=== PATIENT | male | born 1965 | race Caucasian/White ===

== ENCOUNTER 2020-02-04 14:33 | Outpatient (CLI) | payer OTHER, SELFPAY | END 2020-02-04 14:34 | disposition home or self-care (01) | PROVIDERS: PCP Internal Medicine; Visit Provider Nurse Practitioner Family | DX: E78.5 Hyperlipidemia, unspecified (principal); Z13.29 Encounter for screening for other suspected endocrine disorder | CPT/HCPCS: 36415; 84443 ==

== ENCOUNTER 2020-04-04 17:29 | Emergency (ER) | payer OTHER, SELFPAY ==
[2020-04-04 17:35] VITALS: BP 140/85; PULSE 59; RESP 18; TEMP 36.4; O2SAT 98
[2020-04-04 19:33] LABS: Basophils Percent Auto 0.6 % (0.2-1.2); Eosinophils Absolute Auto 0.2 K/mm3 (0-0.3); Eosinophils Percent Auto 2.9 % (0-4.4); Hematocrit 39.1 % (42.0-52.0); Hemoglobin 13.4 g/dL (14.0-18.0); Immature Granulocyte Absolute 0.02 K/mm3 (0.00-0.031); Immature Granulocyte Percent A 0.3 % (0-0.5); Lymphocytes Percent Auto 28.8 % (18.3-44.2); Mean Corpuscular HGB Conc 34.3 g/dl (32-36); Mean Corpuscular Hemoglobin 30.9 pg (26-34); Mean Corpuscular Volume 90.1 fl (80-100); Mean Platelet Volume 10.8 fl (7.4-10.4); Monocytes Absolute Auto 0.7 K/mm3 (0.1-0.6); Monocytes Percent Auto 11.2 % (2.6-8.5); Neutrophils Absolute Auto 3.5 K/mm3 (1.3-6.7); Neutrophils Percent Auto 56.2 % (45.5-73.1); Platelet Count Result 230 k/mm3 (150-375); Red Blood Count 4.34 M/mm3 (4.6-6.20); Red Cell Distribution Width 11.6 % (11.5-14.5); White Blood Count 6.3 K/mm3 (4.5-10.0)
[2020-04-04 19:45] VITALS: BP 121/82; PULSE 59; RESP 18; O2SAT 98
[2020-04-04 19:46] LABS: Alanine Aminotransferase 25 U/L (4-50); Albumin Level 3.6 g/dL (3.5-5.1); Alkaline Phosphatase 99 U/L (38-126); Anion Gap 4 mmol/L (8-16); Aspartate Amino Transferase 23 U/L (17-59); Bilirubin,Total 0.2 mg/dL (0.2-1.3); Blood Urea Nitrogen 15 mg/dL (9-20); Calcium 8.3 mg/dL (8.4-10.2); Carbon Dioxide 29 mmol/L (22-30); Chloride 107 mmol/L (98-107); Estimated CRCL calculation 106 ml/min; Estimated Glomerular Filt Rate > 60; Glucose 88 mg/dL (75-110); Lipase 71 U/L (23-300); Potassium 3.7 mmol/L (3.4-5.0); Sodium 140 mmol/L (137-145)
[2020-04-04 19:58] LABS: Add Urine Microscopic? YES; Amorphous Sediment Urine Few; Appearance Urine Cloudy (Clear); Bacteria Urine Trace /hpf; Bilirubin Urine Negative (Negative); Blood Urine Negative (Negative); Color Urine Yellow (Yellow); Glucose Urine UA Negative (Negative); Ketones Urine Negative (Negative); Leukocyte Esterase Ur Negative LEU/UL (Negative); Nitrate Urine Negative (Negative); Protein Urine Negative (Negative); RBC Urine 0-2 /hpf (0-2); Specific Grav Ur 1.014 (1.001-1.035); Squamous Epithelial Cell Urine Occasional /hpf (Few); Urobilinogen Urine Negative mg/dL (<2.0); WBC Urine 0-3 /hpf
--- NOTE | 2020-04-04 20:36 | ED.ABDPAIN ---
HPI - Abdominal Pain General Chief Complaint: Abdominal Pain Stated Complaint: rlq pain Time Seen by Provider: 04/04/20 18:02 Source: patient and family Mode of arrival: ambulatory Limitations: no limitations History of Present Illness HPI narrative: 54-year-old with a history of asthma, bipolar disorder here with a complaint of right-sided abdominal pain. Patient states that he passed a kidney stone at home had severe pain few hours ago however at this time his pain is much subsided he denies any fever or chills. No history of nausea or vomiting. Denies any blood in the urine. MD elicited complaint: abdominal pain Pertinent past history: none Onset (ago): hour(s) (4) Pain Consistency: constant Location: RLQ Severity: moderate Quality: aching Radiation: none Migration to: no migration Exacerbating factors: nothing Relieving factors: nothing Associated symptoms: denies other symptoms Related Data Home Medications Medication Instructions Recorded Confirmed alprazolam PRN 04/04/20 levothyroxine DAILY 04/04/20 phenytoin sodium extended PO BID 04/04/20 risperidone See Rx Instructions .ROUTE .COMPLEX 04/04/20 Allergies Allergy/AdvReac Type Severity Reaction Status Date / Time codeine Allergy Severe Swelling Verified 04/04/20 17:44 Penicillins Allergy Severe Swelling Verified 04/04/20 17:44 of Lip/Tongue/Throat iodine Allergy Intermediate Hives / Verified 04/04/20 17:44 Red Face ketorolac Allergy Mild Hives Verified 04/04/20 17:44 benzonatate Allergy Unknown Unknown Verified 04/04/20 17:44 steroids AdvReac Severe violent Uncoded 09/20/16 22:34 behavior Review of Systems Review of Systems: All systems reviewed & are unremarkable except as noted in HPI and below Constitutional: Constitutional: Reports no additional constitutional complaints Eyes: Eyes: Reports as per HPI Cardiovascular: Cardiovascular: Reports no additional cardiovascular complaints Respiratory: Respiratory: Reports no additional respiratory complaints Gastrointestinal: Gastrointestinal: Reports no additional gastrointestinal complaints Genitourinary: Genitourinary: Reports no additional male genitourinary complaints [facility] Past Medical History Medical History Asthma Bipolar disorder Brain tumor As child Right wrist fracture Seizures 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 Surgical History Surgical History H/O right wrist surgery ORIF History of tonsillectomy S/P right knee arthroscopy Family History Family History Other Cerebrovascular accident Family history of alcoholism Family history of cardiovascular disease Family history of seizure disorder Social History Social History Smokeless tobacco user: chewing tobacco Gender identity (if verbalized by the patient): Male Exam Narrative: Exam Narrative: GENERAL: Well-appearing, well-nourished, and in no acute distress. HEAD: Normocephalic, atraumatic. EYES: PERRLA and EOMI. ENT: Nares clear, Mucous membranes moist. NECK: Supple. CHEST: Clear to auscultation. No respiratory distress. HEART: Regular rate and rhythm. No murmur heard. Normal peripheral pulses. ABDOMEN: Soft, nontender, nondistended, normal active bowel sounds. EXTREMITIES: Normal range of motion. No edema. SKIN: Warm, dry, no rash. NEURO: No focal deficits. Alert and oriented x3. PSYCH: Normal mood and affect. Course Vital Signs Vital signs: Vital Signs Temperature 36.4 C 04/04/20 17:35 Pulse Rate 59 L 04/04/20 17:35 Respiratory Rate 18 04/04/20 17:35 Blood Pressure 140/85 04/04/20 17:35 Pulse Oximetry 98 04/04/20 17:35 Temperature 36.4 C 04/04/20 17:35 Pulse Rate 59 L 04/04/20 19:45 Respiratory Rate 18 04/04/20 19:
[2020-04-04 20:50] VITALS: BP 124/84; PULSE 78; RESP 17; O2SAT 99
== END 2020-04-04 20:52 | disposition home or self-care (01) ==
PROVIDERS: Emergency Provider Family Medicine; PCP Internal Medicine
DX: R10.31 Right lower quadrant pain (principal); Z87.442 Personal history of urinary calculi; F31.9 Bipolar disorder, unspecified; J45.909 Unspecified asthma, uncomplicated; Z86.73 Personal history of transient ischemic attack (TIA), and cerebral infarction without residual deficits; F17.220 Nicotine dependence, chewing tobacco, uncomplicated
CPT/HCPCS: 36415; 80053; 81001; 83690; 85025; 99283

== ENCOUNTER 2020-10-10 19:02 | Emergency (ER) | payer OTHER, SELFPAY ==
[2020-10-10 19:04] VITALS: BP 137/84; PULSE 80; RESP 16; TEMP 36.6; O2SAT 100
--- NOTE | 2020-10-10 19:48 | ED.GENADULT ---
HPI - General Adult General Chief complaint: Ear Stated complaint: BILATERAL EAR PAIN Time Seen by Provider: 10/10/20 19:17 Source: patient Mode of arrival: ambulatory Limitations: no limitations History of Present Illness HPI narrative: Patient is a 55-year-old male who presents with bilateral ear pain and congestion that began over the last day patient notes pressure in the sinuses bilateral ear discomfort and popping patient denies any other URI symptoms notes that he has already been vaccinated for Covid on arrival is in no distress has not taken anything for his symptoms Related Data Home Medications Medication Instructions Recorded Confirmed alprazolam PRN 04/04/20 levothyroxine DAILY 04/04/20 phenytoin sodium extended PO BID 04/04/20 risperidone See Rx Instructions .ROUTE .COMPLEX 04/04/20 Allergies Allergy/AdvReac Type Severity Reaction Status Date / Time codeine Allergy Severe Swelling Verified 10/10/20 19:08 Penicillins Allergy Severe Swelling Verified 10/10/20 19:08 of Lip/Tongue/Throat iodine Allergy Intermediate Hives / Verified 10/10/20 19:08 Red Face ketorolac Allergy Mild Hives Verified 10/10/20 19:08 benzonatate Allergy Unknown Unknown Verified 10/10/20 19:08 steroids AdvReac Severe violent Uncoded 09/20/16 22:34 behavior Review of Systems Review of Systems: All systems reviewed & are unremarkable except as noted in HPI and below PMFSH Past Medical History Medical History (Updated 10/10/20 @ 19:53 by Reilly Galindo PA-C) Asthma Bipolar disorder Brain tumor As child Right wrist fracture Seizures 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 Surgical History Surgical History H/O right wrist surgery ORIF History of tonsillectomy S/P right knee arthroscopy Family History Family History Other Cerebrovascular accident Family history of alcoholism Family history of cardiovascular disease Family history of seizure disorder Social History Social History Smokeless tobacco user: chewing tobacco Gender identity (if verbalized by the patient): Male Exam Narrative: Exam Narrative: GENERAL: Well-appearing, well-nourished, and in no acute distress. HEAD: Normocephalic, atraumatic. EYES: PERRLA and EOMI. ENT: Nares clear, no rhinorrhea or epistaxis. Mucous membranes moist. Oropharynx without tonsillar hypertrophy exudate or other lesions. Bilateral TMs with fluid levels slightly erythematous nonbulging NECK: Supple. No adenopathy or masses. CHEST: Clear to auscultation. No respiratory distress. No wheezes rales or rhonchi HEART: Regular rate and rhythm. No murmur heard. EXTREMITIES: Normal range of motion. No edema. SKIN: Warm, dry, no rash. NEURO: No focal deficits. Alert and oriented x3. PSYCH: Normal mood and affect. Course Course Emergency Course: Patient in the room in no distress aware of case findings treatment plan and diagnosis will follow up with ENT is afebrile nontoxic-appearing no distress. Patient felt appropriate for outpatient reevaluation Vital Signs Vital signs: Vital Signs Temperature 98 F 10/10/20 19:04 Pulse Rate 80 10/10/20 19:04 Respiratory Rate 16 10/10/20 19:04 Blood Pressure 137/84 10/10/20 19:04 Pulse Oximetry 100 10/10/20 19:04 Temperature 98 F 10/10/20 19:04 Pulse Rate 80 10/10/20 19:04 Respiratory Rate 16 10/10/20 19:04 Blood Pressure 137/84 10/10/20 19:04 Pulse Oximetry 100 10/10/20 19:04 Medical Decision Making [facility] Narrative Medical decision making narrative: Patient with acute onset upper respiratory symptoms after working outside afebrile nontoxic-appearing no distress will be treated symptomatically felt appropriate for outpatient reevaluation Vital Signs Vital Signs: Vital Signs Temperature
== END 2020-10-10 20:42 | disposition home or self-care (01) ==
PROVIDERS: Emergency Provider Emergency Medicine; PCP Nurse Practitioner Family
DX: J32.9 Chronic sinusitis, unspecified (principal); J45.909 Unspecified asthma, uncomplicated; Z86.73 Personal history of transient ischemic attack (TIA), and cerebral infarction without residual deficits; F31.9 Bipolar disorder, unspecified; F17.220 Nicotine dependence, chewing tobacco, uncomplicated
CPT/HCPCS: 99283

== ENCOUNTER 2020-10-21 11:37 | Emergency (ER) | payer OTHER, SELFPAY ==
--- NOTE | ~2020-10-21 | XR_ITS ---
EXAMINATION: XR ankle LT min 3V DATE: 10/21/2020 12:55 INDICATION: Left ankle injury. TECHNIQUE: 4 views of left ankle were obtained. COMPARISON: None. FINDINGS: Bone alignment is normal. No acute fracture. There is heterotopic ossification distal to me dial and lateral malleoli. There is mild ankle joint osteoarthritis. There is ankle soft tissue swell ing. IMPRESSION: 1. Mild ankle joint osteoarthritis. Reviewed, dictated and finalized at location A.
--- NOTE | ~2020-10-21 | XR_ITS ---
EXAMINATION: XR foot LT min 3V DATE: 10/21/2020 12:55 INDICATION: Left foot injury. TECHNIQUE: 4 views of left foot were obtained. COMPARISON: None. FINDINGS: There is moderate hallux valgus. No fracture. There is mild osteoarthritis of first metatar sophalangeal joint and some of the interphalangeal joints. IMPRESSION: 1. Moderate hallux valgus. 2. Mild polyarticular osteoarthritis. Reviewed, dictated and finalized at location A.
[2020-10-21 11:57] VITALS: BP 112/73; PULSE 81; RESP 14; TEMP 36.3; O2SAT 98
--- NOTE | 2020-10-21 13:12 | ED.LOWEXIN ---
HPI - Extremity Injury (Lower) General Chief Complaint: Extremity Injury, Lower Stated Complaint: L foot injury Time Seen by Provider: 10/21/20 13:06 Source: patient Mode of arrival: ambulatory Limitations: no limitations History of Present Illness HPI Narrative: This is a 55 year old male that presents to the ER for left foot pain after an injury this morning. Reports he was opening the rear door of his truck at work. Reports a piece of concrete fell onto his foot. Reports since he has had pain and swelling of the dorsal surface of the foot. Denies decreased ROM or numbness. Related Data Home Medications Medication Instructions Recorded Confirmed alprazolam PRN 04/04/20 levothyroxine DAILY 04/04/20 phenytoin sodium extended PO BID 04/04/20 risperidone See Rx Instructions .ROUTE .COMPLEX 04/04/20 Allergies Allergy/AdvReac Type Severity Reaction Status Date / Time codeine Allergy Severe Swelling Verified 10/10/20 19:08 Penicillins Allergy Severe Swelling Verified 10/10/20 19:08 of Lip/Tongue/Throat iodine Allergy Intermediate Hives / Verified 10/10/20 19:08 Red Face ketorolac Allergy Mild Hives Verified 10/10/20 19:08 benzonatate Allergy Unknown Unknown Verified 10/10/20 19:08 steroids AdvReac Severe violent Uncoded 09/20/16 22:34 behavior Review of Systems Review of Systems: Narrative: CONSTITUTIONAL: Denies fever MUSCULOSKELETAL: Reports joint pain, and myalgia. NEUROLOGIC: Denies numbness All systems reviewed & are unremarkable except as noted in HPI and below PMFSH Past Medical History Medical History (Updated 10/21/20 @ 13:14 by Melody Weiss PA-C) Asthma Bipolar disorder Brain tumor As child Right wrist fracture Seizures 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 Surgical History Surgical History H/O right wrist surgery ORIF History of tonsillectomy S/P right knee arthroscopy Family History Family History Other Cerebrovascular accident Family history of alcoholism Family history of cardiovascular disease Family history of seizure disorder Social History Social History Smokeless tobacco user: chewing tobacco Gender identity (if verbalized by the patient): Male Exam Narrative: Exam Narrative: GENERAL: Well-appearing, well-nourished, and in no acute distress. HEAD: Normocephalic, atraumatic. EYES: EOMI. EXTREMITIES: Normal range of motion. Mild edema about the left foot dorsal surface, tender to palpation. Normal DP pulses. Normal sensation SKIN: Warm, dry, no rash. NEURO: No focal deficits. Alert and oriented x3. PSYCH: Normal mood and affect Course Vital Signs Vital signs: Vital Signs Temperature 97.4 F L 10/21/20 11:57 Pulse Rate 81 10/21/20 11:57 Respiratory Rate 14 10/21/20 11:57 Blood Pressure 112/73 10/21/20 11:57 Pulse Oximetry 98 10/21/20 11:57 Temperature 97.4 F L 10/21/20 11:57 Pulse Rate 81 10/21/20 11:57 Respiratory Rate 14 10/21/20 11:57 Blood Pressure 112/73 10/21/20 11:57 Pulse Oximetry 98 10/21/20 11:57 MDM - Extremity Injury (Lower) MDM Narrative Medical decision making narrative: Patient presents the emergency department for left foot pain after an injury today. He was at work when a piece of concrete fell on the foot. Reports pain and swelling to the dorsal surface of the foot. He is neurovascularly intact. Left foot and ankle x-rays are without acute osseous abnormalities. Patient instructed to rest, ice and elevate. He is to follow-up with his primary care doctor. He was given warnings to return to the ER Imaging Data Radiologist's impression: ITS Impressions Ankle X-Ray 10/21/20 12:59 IMPRESSION: 1. Mild ankle joint osteoarthritis. Foot X-Ray 10/21/20 13:00 IMPRESSION: 1. Moderate tsang
[2020-10-21 13:35] VITALS: BP 120/70; PULSE 80; RESP 16; O2SAT 97
[2020-10-21] MEDS: HYDROcodone/acetaminophen (*CRX) 5-325 MG TABLET 1 TAB PO (13:42)
== END 2020-10-21 14:20 | disposition home or self-care (01) ==
PROVIDERS: Emergency Provider Emergency Medicine; PCP Nurse Practitioner Family
DX: S97.82XA Crushing injury of left foot, initial encounter (principal); J45.909 Unspecified asthma, uncomplicated; Z86.73 Personal history of transient ischemic attack (TIA), and cerebral infarction without residual deficits; F17.220 Nicotine dependence, chewing tobacco, uncomplicated; M19.072 Primary osteoarthritis, left ankle and foot; M20.12 Hallux valgus (acquired), left foot; W20.8XXA Other cause of strike by thrown, projected or falling object, initial encounter
CPT/HCPCS: 73610; 73630; 99283; A9270

== ENCOUNTER 2020-11-11 12:10 | Emergency (ER) | payer OTHER, SELFPAY ==
[2020-11-11 12:24] VITALS: BP 137/81; PULSE 70; RESP 18; TEMP 36.4; O2SAT 100
--- NOTE | 2020-11-11 13:52 | ED.EAR ---
HPI - Ear Problem General Chief complaint: Ear Stated complaint: ears hurting Time Seen by Provider: 11/11/20 13:03 Source: patient Mode of arrival: ambulatory Limitations: no limitations History of Present Illness HPI Narrative: 55-year-old male Complains of a 2-day history of bilateral ear pain with a small amount of drainage No dental or sinus symptoms No new hearing loss No fever Related Data Home Medications Medication Instructions Recorded Confirmed albuterol sulfate [Ventolin HFA] INHALATION 10/21/20 atorvastatin 10/21/20 levothyroxine 10/21/20 phenytoin sodium extended PO 10/21/20 risperidone mg 10/21/20 Allergies Allergy/AdvReac Type Severity Reaction Status Date / Time codeine Allergy Severe Swelling Verified 11/11/20 12:32 Penicillins Allergy Severe Swelling Verified 11/11/20 12:32 of Lip/Tongue/Throat iodine Allergy Intermediate Hives / Verified 11/11/20 12:32 Red Face ketorolac Allergy Mild Hives Verified 11/11/20 12:32 benzonatate Allergy Unknown Vomiting Verified 11/11/20 12:32 steroids AdvReac Severe violent Uncoded 11/11/20 12:32 behavior Review of Systems Constitutional: Constitutional: Denies chills and Denies fever(s) Eyes: Eyes: Reports no additional eye complaints ENT: Denies vertigo, Denies dizziness and Denies nasal congestion Respiratory: Respiratory: Denies cough and Denies dyspnea PMF Past Medical History Medical History (Updated 11/11/20 @ 13:52 by Josias Boyd MD) Asthma Bipolar disorder Brain tumor As child Right wrist fracture Seizures 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 Surgical History Surgical History H/O right wrist surgery ORIF History of tonsillectomy S/P right knee arthroscopy Family History Family History Other Cerebrovascular accident Family history of alcoholism Family history of cardiovascular disease Family history of seizure disorder Social History Social History Smokeless tobacco user: chewing tobacco Gender identity (if verbalized by the patient): Male Exam Const: General: no acute distress and alert Orientation/consciousness: patient oriented x3 HENMT: Ears: TM's normal bilaterally and Abnormal EAC present Face and sinus: sinuses nontender Mouth: Yes Normal oral and palatal mucosa present Throat: posterior oropharynx normal Eyes: Conjunctivae: conjunctivae normal Neck: Neck: no lymphadenopathy Resp: Effort & Inspection: normal respiratory effort and not labored Skin: General skin exam: normal color Neuro: General: patient oriented x3 Speech: normal speech Course Vital Signs Vital signs: Vital Signs Temperature 36.4 C L 11/11/20 12:24 Pulse Rate 70 11/11/20 12:24 Respiratory Rate 18 11/11/20 12:24 Blood Pressure 137/81 11/11/20 12:24 Pulse Oximetry 100 11/11/20 12:24 Temperature 36.4 C L 11/11/20 12:24 Pulse Rate 70 11/11/20 12:24 Respiratory Rate 18 11/11/20 12:24 Blood Pressure 137/81 11/11/20 12:24 Pulse Oximetry 100 11/11/20 12:24 Medical Decision Making Vital Signs Vital Signs: Vital Signs Temperature 36.4 C L 11/11/20 12:24 Pulse Rate 70 11/11/20 12:24 Respiratory Rate 18 11/11/20 12:24 Blood Pressure 137/81 11/11/20 12:24 Pulse Oximetry 100 11/11/20 12:24 Temperature 36.4 C L 11/11/20 12:24 Pulse Rate 70 11/11/20 12:24 Respiratory Rate 18 11/11/20 12:24 Blood Pressure 137/81 11/11/20 12:24 Pulse Oximetry 100 11/11/20 12:24 Discharge Plan Discharge Clinical Impression: Otitis externa Patient Disposition: Home, Self-Care Condition: Stable Instructions: Antibiotic Form Additional Instructions: tylenol or advil as needed Prescriptions: New [id number] 3.5-10,000-1
== END 2020-11-11 14:02 | disposition home or self-care (01) ==
PROVIDERS: Emergency Provider Emergency Medicine; PCP Nurse Practitioner Family
DX: H60.93 Unspecified otitis externa, bilateral (principal); J45.909 Unspecified asthma, uncomplicated; Z86.73 Personal history of transient ischemic attack (TIA), and cerebral infarction without residual deficits; F31.9 Bipolar disorder, unspecified; F17.220 Nicotine dependence, chewing tobacco, uncomplicated
CPT/HCPCS: 99283

== ENCOUNTER 2021-04-03 00:18 | Emergency (ER) | payer OTHER, SELFPAY ==
--- NOTE | ~2021-04-03 | CT_ITS ---
EXAMINATION: CT brain wo con EXAM DATE: 04/03/2021 01:58 INDICATION: Trauma, headache after head injury. Loss of consciousness. TECHNIQUE: Spiral CT of the head was performed without contrast. Axial, coronal and sagittal images were reviewed. The dose-length product (DLP) for this examination was 605.33 mGy-cm. The exposure w as tailored according to patient size, and iterative reconstruction (ASIR) was used as additional dos e reduction technique. Comparison is made to prior examination from 07/25/2018. FINDINGS: There is no acute intraparenchymal hemorrhage. No evidence of intraparenchymal brain mass lesion. No evidence of acute infarction. There is no mass effect or midline shift. The ventricles are normal in size. There are no extra-axial collections. There are no acute calvarial fractures. T he orbits are unremarkable. Soft tissue is unremarkable. The visualized sinuses and mastoid air armani ls are well aerated. IMPRESSION: 1. No acute intracranial findings. Reviewed, dictated and finalized at location A.
[2021-04-03 00:17] VITALS: BP 129/81; PULSE 67; RESP 20; TEMP 36.6; O2SAT 99
--- NOTE | 2021-04-03 01:36 | PC.NURSE ---
Patient states he does not want an IV, requesting PO meds. ERP informed, orders received.
[2021-04-03] MEDS: ACETAMINOPHEN 500 MG TABLET 1000 MG PO (01:41)
[2021-04-03] MEDS: ONDANSETRON HCL ODT 4 MG TABLET PO (01:41)
--- NOTE | 2021-04-03 02:15 | ED.HEATRA ---
HPI - Head Injury General Chief complaint: Head Injury Stated complaint: head injury/ headache Time Seen by Provider: 04/03/21 00:24 History of Present Illness HPI Narrative: Patient is a 55-year-old male who presents ER with reported worst headache of his life. Yesterday evening he was cleaning out a closet when the leaf of a table that was balance on top of a TV tipped over and struck him on the top of the head. It caused him to fall backwards and fall onto the ground striking his head again. Family reports loss of consciousness for greater than 2 minutes. He has had persistent headaches since then. Also reports that he has had nausea without vomiting. No relief with [id number] medication. No fevers or chills or sweats. No change in vision. Has history of epilepsy but did not have a seizure. Reports compliance with home medications. No blood thinners. Related Data Home Medications Medication Instructions Recorded Confirmed albuterol sulfate [Ventolin HFA] INHALATION 10/21/20 atorvastatin 10/21/20 levothyroxine 10/21/20 phenytoin sodium extended PO 10/21/20 risperidone mg 10/21/20 Allergies Allergy/AdvReac Type Severity Reaction Status Date / Time codeine Allergy Severe Swelling Verified 04/03/21 00:24 Penicillins Allergy Severe Swelling Verified 04/03/21 00:24 of Lip/Tongue/Throat iodine Allergy Intermediate Hives / Verified 04/03/21 00:24 Red Face ketorolac Allergy Mild Hives Verified 04/03/21 00:24 benzonatate Allergy Unknown Vomiting Verified 04/03/21 00:24 steroids AdvReac Severe violent Uncoded 11/11/20 12:32 behavior Review of Systems Review of Systems: All systems reviewed & are unremarkable except as noted in HPI and below Constitutional: Constitutional: Denies chills, Denies fever(s) and Denies weakness Eyes: Eyes: Denies change in vision and Denies photophobia ENT: Denies nasal congestion and Denies sore throat Gastrointestinal: Gastrointestinal: Denies abdominal pain, Reports nausea and Denies vomiting Neurologic: Denies dizziness, Reports syncope, Reports headache(s), Denies focal weakness and Denies numbness PMFSH Past Medical History Medical History (Updated 04/03/21 @ 03:55 by Silas Valladares MD) Asthma Bipolar disorder Brain tumor As child Right wrist fracture Seizures 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 Surgical History Surgical History H/O right wrist surgery ORIF History of tonsillectomy S/P right knee arthroscopy Family History Family History Other Cerebrovascular accident Family history of alcoholism Family history of cardiovascular disease Family history of seizure disorder Social History Social History Smokeless tobacco user: chewing tobacco Gender identity (if verbalized by the patient): Male Exam Narrative: GENERAL: Well-appearing, well-nourished, and in no acute distress. HEAD: Normocephalic, atraumatic. EYES: PERRLA and EOMI. CHEST: Clear to auscultation. No respiratory distress. HEART: Regular rate and rhythm. Normal peripheral pulses. EXTREMITIES: Normal range of motion. No edema. SKIN: Warm, dry, no rash. NEURO: Alert and oriented x3. PSYCH: Normal mood and affect. Course Course Emergency Course: Headache markedly improved with acetaminophen nausea improved with Zofran. Discharge home with supportive care. Vital Signs Vital signs: Vital Signs Temperature 97.9 F 04/03/21 00:17 Pulse Rate 67 04/03/21 00:17 Respiratory Rate 20 04/03/21 00:17 Blood Pressure 129/81 04/03/21 00:17 Pulse Oximetry 99 04/03/21 00:17 Temperature 97.9 F 04/03/21 00:17 Pulse Rate 63 04/03/21 04:18 Respiratory Rate 18 04/03/21 04:18 Blood Pressure 115/80 04/03/21 04:18 Pulse Oximetry 98 04/03/21 04:18
[2021-04-03 03:03] VITALS: BP 105/74; PULSE 60; RESP 18; O2SAT 98
[2021-04-03 04:18] VITALS: BP 115/80; PULSE 63; RESP 18; O2SAT 98
== END 2021-04-03 04:10 | disposition home or self-care (01) ==
PROVIDERS: Emergency Provider Emergency Medicine; PCP Nurse Practitioner Family
DX: S06.0X9A Concussion with loss of consciousness of unspecified duration, initial encounter (principal); F31.9 Bipolar disorder, unspecified; F17.220 Nicotine dependence, chewing tobacco, uncomplicated; Z86.73 Personal history of transient ischemic attack (TIA), and cerebral infarction without residual deficits; W20.8XXA Other cause of strike by thrown, projected or falling object, initial encounter; W01.10XA Fall on same level from slipping, tripping and stumbling with subsequent striking against unspecified object, initial encounter
CPT/HCPCS: 70450; 99284; A9270

== ENCOUNTER 2021-10-23 22:21 | Emergency (ER) | payer OTHER, SELFPAY ==
--- NOTE | ~2021-10-23 | XR_ITS ---
EXAMINATION: XR hip RT 2V w AP pelvis EXAM DATE: 10/23/2021 22:57 INDICATION: No known recent injury provided at this time. Pain of the right hip. TECHNIQUE: Right hip frontal, 'frog leg' projections for interpretation. Frontal projection pelvis. There is no prior study for comparison. FINDINGS: Smooth right hip femoral head contour, no radiographic evidence of avascular necrosis. The re are no acute fractures or dislocations identified. There is no subcutaneous gas. The soft tissue is unremarkable. There are no radiopaque foreign bodies. There is mild symmetric bilateral hip p rimary osteoarthritis. IMPRESSION: Mild symmetric bilateral hip osteoarthritis. Reviewed, dictated and finalized at location A.
[2021-10-23 22:22] VITALS: BP 140/88; PULSE 76; RESP 16; TEMP 36.4; O2SAT 99
--- NOTE | 2021-10-23 23:44 | ED.GENADULT ---
HPI - General Adult General Chief complaint: Extremity Injury, Lower <Melody Blackwell PA-C - Last Filed: 10/24/21 03:16> Stated complaint: right hip pain <WANDA Benitez Last Filed: 10/24/21 03:16> Time Seen by Provider: 10/23/21 23:15 <WANDA Benitez Last Filed: 10/24/21 03:16> History of Present Illness HPI narrative: Patient is a 43-year-old male presents emergency department for evaluation of right hip and low back pain for 1 month, onset after falling off of a dump truck. Patient states he lost his balance and fell from about 3 feet up landing on his right hip area. Denies head injury or loss of consciousness in the fall. Denies incontinence or retention of bowel or bladder, saddle anesthesia. Since the fall, his pain has been intermittent, but severe. He has been ambulatory, but used a wheelchair today. The pain is described as a sharp shooting sensation in his right hip and is constant, worse with positions and movement. He has not tried anything for his pain at home. <Melody Blackwell PA-C - Last Filed: 10/24/21 03:16> Related Data Home medications: Home Medications Medication Instructions Recorded Confirmed albuterol sulfate [Ventolin HFA] INHALATION 10/21/20 atorvastatin 10/21/20 levothyroxine 10/21/20 phenytoin sodium extended PO 10/21/20 risperidone mg 10/21/20 <WANDA Benitez Last Filed: 10/24/21 03:16> Allergies/adverse reactions: Allergies Allergy/AdvReac Type Severity Reaction Status Date / Time codeine Allergy Severe Swelling Verified 10/23/21 22:24 Penicillins Allergy Severe Swelling Verified 10/23/21 22:24 of Lip/Tongue/Throat iodine Allergy Intermediate Hives / Verified 10/23/21 22:24 Red Face ketorolac Allergy Mild Hives Verified 10/23/21 22:24 benzonatate Allergy Unknown Vomiting Verified 10/23/21 22:24 steroids AdvReac Severe violent Uncoded 11/11/20 12:32 behavior <Melody Blackwell PA-C - Last Filed: 10/24/21 03:16> Review of Systems Review of Systems: Gen.: Denies fevers or chills Eyes: Denies eye pain or visual change ENT: Denies congestion Respiratory: Denies shortness of breath or cough CV: Denies chest pain or palpitations GI: Denies abdominal pain nausea, emesis or diarrhea denies burning, urgency, frequency or hematuria Musculoskeletal: Reports hip pain and low back pain. Neuro: Denies numbness, tingling, weakness or focal weakness Skin: Denies rash Except as documented, all other systems reviewed and negative <Melody Blackwell PA-C - Last Filed: 10/24/21 03:16> All systems reviewed & are unremarkable except as noted in HPI and below <Melody Blackwell PA-C - Last Filed: 10/24/21 03:16> [facility] Past Medical History Medical History: Medical History (Updated 10/24/21 @ 00:47 by Melody Blackwell PA-C) Asthma Bipolar disorder Brain tumor As child Right wrist fracture Seizures 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 <Melody Blackwell PA-C - Last Filed: 10/24/21 03:16> Surgical History Surgical History: Surgical History H/O right wrist surgery ORIF History of tonsillectomy S/P right knee arthroscopy <Melody Blackwell PA-C - Last Filed: 10/24/21 03:16> Family History Family History: Family History Other Cerebrovascular accident Family history of alcoholism Family history of cardiovascular disease Family history of seizure disorder <Melody Blackwell PA-C - Last Filed: 10/24/21 03:16> Social History Social History: Social History Smokeless tobacco user: chewing tobacco Gender identity (if verbalized by the patient): Male <Melody Blackwell PA-C - Last Filed: 10/24/21 03:16> Exam
[2021-10-23] MEDS: ACETAMINOPHEN 500 MG TABLET 1000 MG PO (23:48)
[2021-10-23] MEDS: IBUPROFEN 400 MG TABLET 800 MG PO (23:48)
[2021-10-24] MEDS: LIDOCAINE 5% PATCH 1 PATCH TRANSDERM (00:23)
[2021-10-24 00:32] VITALS: BP 98/66; PULSE 63; RESP 18; O2SAT 99
[2021-10-24 00:59] VITALS: BP 123/89; PULSE 75; RESP 16; O2SAT 98
== END 2021-10-24 01:01 | disposition home or self-care (01) ==
PROVIDERS: Emergency Provider Emergency Medicine; PCP Nurse Practitioner Family
DX: S76.011A Strain of muscle, fascia and tendon of right hip, initial encounter (principal); W17.89XA Other fall from one level to another, initial encounter
CPT/HCPCS: 73502; 99283; A9270

== ENCOUNTER 2021-12-17 12:38 | Emergency (ER) | payer OTHER, SELFPAY ==
--- NOTE | ~2021-12-17 | XR_ITS ---
[[id number] ] INDICATION: Right rib pain after trauma TECHNIQUE: Frontal projection of the upper right ribs, frontal projection of the lower right ribs, ob lique projection of all the right ribs, frontal inspiratory chest x-ray for interpretation. FINDINGS: There are no acute displaced rib fractures identified. There are no soft tissue abnormali ty seen. There is left basilar atelectasis. No pleural effusion, focal pneumonia, edema or pneumothor ax.. IMPRESSION: 1:No acute displaced rib fractures. 2:Left basilar atelectasis. Reviewed, dictated and finalized at location A.
[2021-12-17 12:40] VITALS: BP 125/66; PULSE 84; RESP 18; TEMP 36.5; O2SAT 100
[2021-12-17] MEDS: traMADol HCL (*CRX) 50 MG TABLET PO (13:10)
[2021-12-17 13:30] VITALS: BP 142/86; PULSE 90; RESP 18; O2SAT 97
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
[2021-12-17] MEDS: LIDOCAINE 5% PATCH 1 PATCH TRANSDERM (14:13)
== END 2021-12-17 14:15 | disposition home or self-care (01) ==
PROVIDERS: Emergency Provider Emergency Medicine; PCP Nurse Practitioner Family
DX: R07.81 Pleurodynia (principal); J45.909 Unspecified asthma, uncomplicated; Z86.73 Personal history of transient ischemic attack (TIA), and cerebral infarction without residual deficits; F31.9 Bipolar disorder, unspecified; F17.220 Nicotine dependence, chewing tobacco, uncomplicated
CPT/HCPCS: 71101; 99283; A9270

== ENCOUNTER 2022-03-22 18:47 | Emergency (ER) | payer OTHER, SELFPAY ==
[2022-03-22 19:11] VITALS: BP 133/92; PULSE 83; RESP 18; TEMP 36.8; O2SAT 98
--- NOTE | 2022-03-22 19:49 | ED.GENADULT ---
HPI - General Adult General Chief complaint: Ear Stated complaint: R ear pain Time Seen by Provider: 03/22/22 19:44 History of Present Illness HPI narrative: Patient is a 56-year-old gentleman who presents the emergency department with chief complaint of bilateral ear pain. Patient states is worse on the right and reports he has prior history of ear infections in the past. The patient states that is a little bit of a runny nose and has had a dry cough. The patient denies fever reports this feels similar to whenever he has had otitis in the past. The patient reports he is allergic to penicillin and reports he has been treated successfully with Zithromax in the past. Related Data Home Medications Medication Instructions Recorded Confirmed albuterol sulfate 90 mcg/actuation inhalation 10/21/20 aerosol inhaler (Ventolin HFA) atorvastatin 10 mg tablet 10/21/20 levothyroxine 75 mcg tablet 10/21/20 phenytoin sodium extended 100 mg PO 10/21/20 capsule risperidone 1 mg tablet mg 10/21/20 Allergies Allergy/AdvReac Type Severity Reaction Status Date / Time codeine Allergy Severe Swelling Verified 03/22/22 19:33 Penicillins Allergy Severe Swelling Verified 03/22/22 19:33 of Lip/Tongue/Throat iodine Allergy Intermediate Hives / Verified 03/22/22 19:33 Red Face ketorolac Allergy Mild Hives Verified 03/22/22 19:33 benzonatate Allergy Unknown Vomiting Verified 03/22/22 19:33 steroids AdvReac Severe violent Uncoded 11/11/20 12:32 behavior Review of Systems Review of Systems: A 10 system review of systems was completed on the patient and is negative except for what is stated in the HPI. Nursing and ancillary documentation was reviewed. [facility] Past Medical History Medical History (Updated 03/22/22 @ 19:54 by Sal Gonsales MD) Asthma Bipolar disorder Brain tumor As child Right wrist fracture Seizures 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 Surgical History Surgical History H/O right wrist surgery ORIF History of tonsillectomy S/P right knee arthroscopy Family History Family History Other Cerebrovascular accident Family history of alcoholism Family history of cardiovascular disease Family history of seizure disorder Social History Social History Smokeless tobacco user: chewing tobacco Gender identity (if verbalized by the patient): Male Exam Narrative: GENERAL: Well-appearing, well-nourished, and in no acute distress. HEAD: Normocephalic, atraumatic. EYES: PERRLA and EOMI. ENT: Nares clear, no rhinorrhea or epistaxis. Mucous membranes moist. Erythema of the right tympanic membrane, there is an effusion present in bilateral ears NECK: Supple. CHEST: Clear to auscultation. No respiratory distress. HEART: Regular rate and rhythm. No murmur heard. Normal peripheral pulses. ABDOMEN: Soft, nontender, nondistended, normal active bowel sounds. EXTREMITIES: Normal range of motion. No edema. SKIN: Warm, dry, no rash. NEURO: No focal deficits. Alert and oriented x3. PSYCH: Normal mood and affect. Course Vital Signs Vital signs: Vital Signs Temperature 36.8 C 03/22/22 19:11 Pulse Rate 83 03/22/22 19:11 Respiratory Rate 18 03/22/22 19:11 Blood Pressure 133/92 H 03/22/22 19:11 Pulse Oximetry 98 03/22/22 19:11 Oxygen Delivery Room Air 03/22/22 19:11 Temperature 36.8 C 03/22/22 19:11 Pulse Rate 83 03/22/22 19:11 Respiratory Rate 18 03/22/22 19:11 Blood Pressure 133/92 H 03/22/22 19:11 Pulse Oximetry 98 03/22/22 19:11 Oxygen Delivery Room Air 03/22/22 19:11 Medical Decision Making Vital Signs Vital Signs: Vital Signs Temperature 36.8 C 03/22/22 19:11 Pulse Rate 83 03/22/22 19:11 Respiratory Rate 18
[2022-03-22 20:23] VITALS: BP 125/93; PULSE 79; RESP 16; O2SAT 100
== END 2022-03-22 20:10 | disposition home or self-care (01) ==
LOC: ANHED 20:05
PROVIDERS: Emergency Provider Emergency Medicine; PCP Nurse Practitioner Family
DX: H66.93 Otitis media, unspecified, bilateral (principal); J45.909 Unspecified asthma, uncomplicated; Z86.73 Personal history of transient ischemic attack (TIA), and cerebral infarction without residual deficits; F17.220 Nicotine dependence, chewing tobacco, uncomplicated
CPT/HCPCS: 99283

== ENCOUNTER 2022-04-25 12:41 | Emergency (ER) | payer OTHER, SELFPAY ==
--- NOTE | ~2022-04-25 | XR_ITS ---
EXAMINATION: XR foot RT min 3V DATE: 04/25/2022 13:19 INDICATION: Right foot pain TECHNIQUE: Dorsoplantar, lateral, and 2 oblique views of the right foot were obtained. COMPARISON: None. FINDINGS: There is moderate osteoarthritis at the first metatarsophalangeal joint and in multiple int erphalangeal joints. No fracture is identified. The soft tissues are unremarkable. IMPRESSION: 1. No acute osseous abnormality. Reviewed, dictated and finalized at location A.
[2022-04-25 12:49] VITALS: BP 125/85; PULSE 76; RESP 15; TEMP 36.3; O2SAT 100
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
[2022-04-25] MEDS: ACETAMINOPHEN 500 MG TABLET 1000 MG PO (14:55)
--- NOTE | 2022-04-25 14:59 | PC.NURSE ---
patient refused crutches
[2022-04-25 15:00] VITALS: BP 132/68; PULSE 78; RESP 18; O2SAT 99
== END 2022-04-25 15:01 | disposition home or self-care (01) ==
PROVIDERS: Emergency Provider Emergency Medicine; PCP Nurse Practitioner Family
DX: S97.81XA Crushing injury of right foot, initial encounter (principal); W20.8XXA Other cause of strike by thrown, projected or falling object, initial encounter; J45.909 Unspecified asthma, uncomplicated; F31.9 Bipolar disorder, unspecified; G40.909 Epilepsy, unspecified, not intractable, without status epilepticus; Z86.73 Personal history of transient ischemic attack (TIA), and cerebral infarction without residual deficits; Z79.51 Long term (current) use of inhaled steroids; F17.220 Nicotine dependence, chewing tobacco, uncomplicated
CPT/HCPCS: 73630; 99283; A9270

== ENCOUNTER 2022-11-04 12:29 | Outpatient (CLI) | payer OTHER, SELFPAY ==
--- NOTE | ~2022-11-04 | MR_ITS ---
MRI of the right hip Clinical history: Pain Technique: Coronal T1-weighted, T2-weighted, and proton-density fat-sat images, and axial T1-weighted and proton-density fat-sat images were acquired through the pelvis. Coronal T2-weighted images and c oronal, axial, and sagittal proton-density fat-sat images were acquired through the right hip. Findings: There is no fracture, avascular necrosis, or transient osteoporosis of either hip. Bone mar row signals of the proximal femora and visualized pelvic bones are unremarkable. Bilateral hip and SI joint spaces are preserved. No high-grade chondromalacia evident. No significant joint effusion evid ent. No definite right acetabular labral tear identified. Visualized musculature about the pelvis and right hip is unremarkable. No muscle atrophy or edema. Vi sually tendons are intact. No mass lesion or fluid collection seen. No evidence for bursitis. IMPRESSION: No significant abnormality identified. Reviewed, dictated and finalized at [facility].
== END 2022-11-04 12:30 | disposition home or self-care (01) ==
PROVIDERS: PCP Nurse Practitioner Family; Visit Provider Nurse Practitioner Family
DX: M25.551 Pain in right hip (principal); G89.29 Other chronic pain
CPT/HCPCS: 73721

== ENCOUNTER 2023-07-03 12:16 | Emergency (ER) | payer OTHER, SELFPAY ==
[2023-07-03 12:59] VITALS: BP 114/73; PULSE 98; RESP 16; TEMP 36.4; O2SAT 98
--- NOTE | 2023-07-03 13:04 | ED.NAVMDI ---
HPI - Nausea/Vomiting/Diarrhea General Chief complaint: Nausea/Vomiting/Diarrhea Stated complaint: diarrhea x 6 days Source: patient Mode of arrival: ambulatory Limitations: no limitations History of Present Illness HPI Narrative: Patient is a pleasant 57-year-old male with past medical history as noted below who presents emergency department today ambulatory with a steady gait for evaluation of diarrhea over the last 6 days. Patient states that he was on doxycycline for an ear infection and after he stopped taking it he started having diarrhea. Diarrhea is constant. He has still been able to drink but it comes right back out. He denies any fever, chills, vomiting. He states the stool is watery and yellow with strong odor. denies abdominal pain. Related Data Home Medications Medication Instructions Recorded Confirmed albuterol sulfate 90 mcg/actuation inhalation 10/21/20 aerosol inhaler (Ventolin HFA) atorvastatin 10 mg tablet 10/21/20 levothyroxine 75 mcg tablet 10/21/20 phenytoin sodium extended 100 mg PO 10/21/20 capsule risperidone 1 mg tablet mg 10/21/20 Allergies Allergy/AdvReac Type Severity Reaction Status Date / Time codeine Allergy Severe Swelling Verified 03/22/22 19:33 Penicillins Allergy Severe Swelling Verified 03/22/22 19:33 of Lip/Tongue/Throat iodine Allergy Intermediate Hives / Verified 03/22/22 19:33 Red Face ketorolac Allergy Mild Hives Verified 03/22/22 19:33 benzonatate Allergy Unknown Vomiting Verified 03/22/22 19:33 steroids AdvReac Severe violent Uncoded 11/11/20 12:32 behavior Review of Systems Review of Systems: CONSTITUTIONAL: Denies fever, chills, or sweats. EYES: Denies visual changes, redness, or discharge. ENT: Denies rhinorrhea, congestion, sore throat, or otalgia. CARDIOVASCULAR: Denies chest pain, palpitations, or edema. RESPIRATORY: Denies cough or dyspnea. GASTROINTESTINAL: +yellow diarrhea. Denies abdominal pain, nausea, vomiting, GENITOURINARY: Denies dysuria or hematuria. SKIN: Denies rash or itching. MUSCULOSKELETAL: Denies back pain, joint pain, or myalgia. NEUROLOGIC: Denies headache, numbness, or weakness. PSYCHIATRIC: Denies anxiety or depression. All systems reviewed & are unremarkable except as noted in HPI and below PMFSH Past Medical History Medical History (Updated 07/08/23 @ 18:35 by Maye Mckay APRN) Asthma Bipolar disorder Brain tumor As child Right wrist fracture Seizures 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 Surgical History Surgical History H/O right wrist surgery ORIF History of tonsillectomy S/P right knee arthroscopy Family History Family History Other Cerebrovascular accident Family history of alcoholism Family history of cardiovascular disease Family history of seizure disorder Social History Social History Smokeless tobacco user: chewing tobacco Gender identity (if verbalized by the patient): Male Exam Narrative: BRIEF FOCUSED EXAM: GENERAL: Well-appearing, well-nourished, sitting up on exam chair and in no acute distress. HEAD: Normocephalic, ENT: Mucous membranes moist. CHEST: Clear to auscultation. No respiratory distress. HEART: Regular rate and rhythm. No murmur heard. Normal peripheral pulses. ABDOMEN: Soft, nontender, nondistended, normal active bowel sounds. Course Vital Signs Vital signs: Vital Signs Temperature 97.6 F 07/03/23 12:59 Pulse Rate 98 07/03/23 12:59 Respiratory Rate 16 07/03/23 12:59 Blood Pressure 114/73 07/03/23 12:59 Pulse Oximetry 98 07/03/23 12:59 Oxygen Delivery Room Air 07/03/23 12:59 Temperature 97.6 F 07/03/23 15:10 Pulse Rate 97 07/03/23 15:10 Respiratory Rate 18 07/03/23 15:10 Blood Press
[2023-07-03 14:10] LABS: Basophils Percent Auto 0.3 % (0.2-1.2); Eosinophils Absolute Auto 0.1 K/mm3 (0-0.3); Eosinophils Percent Auto 1.4 % (0-4.4); Hematocrit 42.1 % (42.0-52.0); Hemoglobin 14.3 g/dL (14.0-18.0); Immature Granulocyte Absolute 0.02 K/mm3 (0.00-0.031); Immature Granulocyte Percent A 0.3 % (0-0.5); Lymphocytes Absolute Auto 1.53 K/mm3 (0.9-3.2); Mean Corpuscular Hemoglobin 29.9 pg (26-34); Mean Corpuscular Volume 88.1 fl (80-100); Mean Platelet Volume 10.5 fl (7.4-10.4); Monocytes Absolute Auto 0.9 K/mm3 (0.1-0.6); Monocytes Percent Auto 12.1 % (2.6-8.5); Neutrophils Absolute Auto 4.7 K/mm3 (1.3-6.7); Neutrophils Percent Auto 64.9 % (45.5-73.1); Platelet Count Result 230 k/mm3 (150-375); Red Blood Count 4.78 M/mm3 (4.6-6.20); Red Cell Distribution Width 11.9 % (11.5-14.5); White Blood Count 7.3 K/mm3 (4.5-10.0)
[2023-07-03 14:17] LABS: Alanine Aminotransferase 35 U/L (6-50); Albumin Level 4.1 g/dL (3.5-5.1); Alkaline Phosphatase 123 U/L (38-126); Anion Gap 9 mmol/L (8-16); Aspartate Amino Transferase 24 U/L (17-59); Bilirubin,Total 0.5 mg/dL (0.2-1.3); Blood Urea Nitrogen 8 mg/dL (9-20); Calcium 8.9 mg/dL (8.4-10.2); Carbon Dioxide 27 mmol/L (22-30); Chloride 102 mmol/L (98-107); Estimated CRCL calculation 116 ml/min; Estimated Glomerular Filt Rate > 60; Glucose 120 mg/dL (65-110); Lipase 37 U/L (23-300); Potassium 3.3 mmol/L (3.4-5.0); Sodium 138 mmol/L (137-145)
[2023-07-03 14:18] LABS: Magnesium 1.8 mg/dL (1.6-2.3)
[2023-07-03 15:04] LABS: Toxigenic C. Diff NEGATIVE (NEGATIVE)
[2023-07-03 15:10] VITALS: BP 138/86; PULSE 97; RESP 18; TEMP 36.4; O2SAT 98
--- NOTE | 2023-07-03 15:32 | PC.NURSE ---
pt ambulated out of ED without difficulty.
== END 2023-07-03 15:32 | disposition left against medical advice (07) ==
PROVIDERS: Emergency Provider Nurse Practitioner; PCP Nurse Practitioner Family
DX: R19.7 Diarrhea, unspecified (principal); Z79.51 Long term (current) use of inhaled steroids; J45.909 Unspecified asthma, uncomplicated; F31.9 Bipolar disorder, unspecified; G40.909 Epilepsy, unspecified, not intractable, without status epilepticus; Z86.73 Personal history of transient ischemic attack (TIA), and cerebral infarction without residual deficits; F17.220 Nicotine dependence, chewing tobacco, uncomplicated
CPT/HCPCS: 36415; 80053; 83690; 83735; 85025; 87045; 87427; 87449; 87493; 99283

== ENCOUNTER 2023-11-12 13:49 | Emergency (ER) | payer OTHER, SELFPAY ==
--- NOTE | ~2023-11-12 | XR_ITS ---
EXAMINATION: XR forearm RT 2V DATE: 11/12/2023 15:22 INDICATION: Right forearm pain TECHNIQUE: AP an lateral views of the right forearm were obtained. COMPARISON: none FINDINGS: Alignment is normal. No acute fracture. Fixation screws presumably for old healed fracture at the bas e of the third metacarpal. Mild to moderate osteoarthritis at the radial aspect of the carpus and fir st metacarpophalangeal joint. Soft tissues are unremarkable. IMPRESSION: 1. Mild to moderate osteoarthritis at the radial aspect of the carpus and first metacarpophalangeal j oint. No acute osseous abnormality. Reviewed, dictated and finalized at location A. IMPRESSION: 1. Mild to moderate osteoarthritis at the radial aspect of the carpus and first metacarpophalangeal joint. No acute osseous abnormality.
--- NOTE | ~2023-11-12 | XR_ITS ---
EXAM: XR wrist RT min 3V DATE: 11/12/2023 15:22 HISTORY: pain . COMPARISON: X-ray forearm, same date; right hand x-ray 09/25/2012. FINDINGS: Normal mineralization. Uncomplicated third metacarpal fixation screws. No fracture or disl ocation. Mild chronic scapholunate widening. Likely bone island in the scaphoid. No suspicious lytic or blastic lesion. Moderate osteoarthritis at the first CMC and triscaphe joints. No erosion or perio steal change. Soft tissues within normal limits. IMPRESSION: No acute osseous finding in the right wrist. Reviewed, dictated and finalized at location K.
--- NOTE | ~2023-11-12 | XR_ITS ---
EXAMINATION: XR hand RT min 3V DATE: 11/12/2023 15:22 INDICATION: Pain in the digits of the right hand radiating to the wrist TECHNIQUE: Posteroanterior, oblique and lateral views of the right hand were obtained. COMPARISON: None. FINDINGS: Fixation screws at the base of the third metacarpal presumably for old healed fracture. Bone alignmen t is normal. No acute fracture. Polyarticular osteoarthritis, moderate severity at the first carpomet acarpal, first metacarpophalangeal and first interphalangeal joints and mild at the triscaphe and mul tiple additional predominantly distal interphalangeal joints. No cortical erosions. Soft tissues are unremarkable. IMPRESSION: 1. Polyarticular osteoarthritis at the right hand, moderate at the film and otherwise mild. No acute osseous abnormality. Reviewed, dictated and finalized at location A. IMPRESSION: 1. Polyarticular osteoarthritis at the right hand, moderate at the film and oth erwise mild. No acute osseous abnormality.
[2023-11-12 13:56] VITALS: BP 125/79; PULSE 74; RESP 18; TEMP 36.6; O2SAT 96
[2023-11-12] MEDS: ACETAMINOPHEN 500 MG TABLET 1000 MG PO (16:34)
[2023-11-12] MEDS: traMADol HCL (*CRX) 50 MG TABLET PO (16:35)
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
== END 2023-11-12 17:33 | disposition home or self-care (01) ==
PROVIDERS: Emergency Provider General Practice; PCP Nurse Practitioner Family
DX: S60.221A Contusion of right hand, initial encounter (principal); J45.909 Unspecified asthma, uncomplicated; F31.9 Bipolar disorder, unspecified; G40.909 Epilepsy, unspecified, not intractable, without status epilepticus; V09.00XA Pedestrian injured in nontraffic accident involving unspecified motor vehicles, initial encounter
CPT/HCPCS: 73090; 73110; 73130; 99283; A9270

== ENCOUNTER 2024-10-12 18:23 | Emergency (ER) | payer OTHER, SELFPAY ==
[2024-10-12] VITALS (13 sets, daily range): BP systolic 109–126; BP diastolic 53–79; PULSE 71–99; RESP 12–21; TEMP 36.7; O2SAT 97–100
--- NOTE | 2024-10-12 18:32 | ED.SEIZURE ---
HPI - Seizure General Chief Complaint: Seizure Stated Complaint: seizure Source: patient Mode of arrival: EMS Limitations: no limitations History of Present Illness HPI Narrative: This is a 59-year-old male with PMH of seizure disorder, bipolar, asthma who presents to the ED for chief complaint of seizure activity today. He is with his if another who is bedside. She states that patient had 2 episodes of seizures that lasted a couple minutes each time. States that he did come to baseline in between these episodes. Patient states that he was recently taken off his Dilantin with his neurologist over at [facility]. States that October 03 they started him on Keppra twice per day. States that he has been taking his Keppra once per day because it makes him feel groggy. Denies recent illness, fevers, chills, head injury or any further complaints. Seizure History: Yes Related Data Home Medications ?Medication ?Instructions ?Recorded ?Confirmed ?Last Taken ?Type albuterol sulfate 90 mcg/actuation inhalation 10/21/20 09/22/24 Unknown History aerosol inhaler (Ventolin HFA) atorvastatin 10 mg tablet 10/21/20 09/22/24 Unknown History levothyroxine 75 mcg tablet 10/21/20 09/22/24 Unknown History phenytoin sodium extended 100 mg PO 10/21/20 09/22/24 Unknown History capsule risperidone 1 mg tablet mg 10/21/20 09/22/24 Unknown History empagliflozin 10 mg tablet 10 mg PO DAILY 09/22/24 09/22/24 Unknown History (Jardiance) Allergies Allergy/AdvReac Type Severity Reaction Status Date / Time codeine Allergy Severe Swelling Verified 10/12/24 18:33 Penicillins Allergy Severe Swelling Verified 10/12/24 18:33 of Lip/Tongue/Throat iodine Allergy Intermediate Hives / Verified 10/12/24 18:33 Red Face ketorolac Allergy Mild Hives Verified 10/12/24 18:33 benzonatate Allergy Unknown Vomiting Verified 10/12/24 18:33 steroids AdvReac Severe violent Uncoded 10/12/24 18:33 behavior Review of Systems Review of Systems: All systems as dictated in HPI PMFSH Past Medical History Medical History (Updated 10/12/24 @ 19:49 by Jimenez Davalos PA-C) Bipolar disorder Right wrist fracture Seizures 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) Smoking status: Unknown if ever smoked Tobacco type: smokeless tobacco Alcohol intake: never Substance use: never Do You Feel Safe in your Home?: Yes Lack of Transportation: No Lack of Food: Never True Current Housing: I Have Housing Concerned About Future Housing: No Difficulty Paying Gas/Electric Bills: No Difficulty Paying for Meds: No Currently Unemployed: YES Education: High School Diploma/GED Difficulty w/ Childcare or Family Care: No Gender identity (if verbalized by the patient): Male Exam Narrative: GENERAL: Well-appearing, well-nourished, and in no acute distress. HEAD: Normocephalic, atraumatic. EYES: PERRLA and EOMI. ENT: Nares clear, no rhinorrhea or epistaxis. Mucous membranes moist. Oropharynx without tonsillar hypertrophy exudate or other lesions. NECK: Supple. No adenopathy or masses. CHEST: No respiratory distress. Clear to auscultation. No wheezes rales or rhonchi HEART: Regular rate and rhythm. No murmur heard. Normal peripheral pulses. ABDOMEN: Soft, nontender, nondistended, normal active bowel sounds. MSK: Normal range of motion. No edema. SKIN: Warm, dry, no rash. NEURO: Alert and oriented x4. No focal deficits. PSYCH: Normal mood and affect. Course Vital Signs Vital signs: Vital Signs Temperature 98.1 F 10/12/24 18:22 Pulse Rate 99 10/12/24 18:22 Respiratory Rate 18 10/12/24 18:22 Blood Pressure 126/77 10/12/24 18:22 Pulse Oximetry 99 10/12/24 18:22 Oxygen Delivery Room Air 10/12/24 18:22 Temperature 98.1 F 10/12/24 18:22 Pulse Rate 76 10/12/24 20:01 Respiratory Rate 14 10/12/24 20:01 Blood Pressure 119/75 10/12/24 20:01 Pulse Oximetry 97 10/12/24 20:01 Oxygen Delivery Room Air 10/12/24 18:22 MDM - Seizure MDM Narrative Medical decision making narrative: 59-year-old male presenting to the ED for breakthrough seizure after noncompliance with Keppra prescription. Vitals are normal. Exam is unremarkable. No neurologic deficits. Lab work is unremarkable as well. Lactic acid normal. Patient has had no seizure activity here in the ER after observation. He was given loading dose of 1500 mg Keppra. Encouraged continue taking Keppra as prescribed to prevent breakthrough seizures. Patient will be discharged in stable condition. Supportive measures discussed and return precautions given. Patient is understanding and agreeable with plan for discharge with neurology follow-up. Lab Data 10/12/24 19:02 10/12/24 19:02 Labs: Lab Results 10/12/24 Range/Units 19:02 WBC 5.1 (4.5-10.0) K/mm3 RBC 4.90 (4.6-6.20) M/mm3 Hgb 14.7 (14.0-18.0) g/dL Hct 43.6 (42.0-52.0) % MCV 89.0 (80-100) fl MCH 30.0 (26-34) pg MCHC 33.7 (32-36) g/dl RDW 11.9 (11.5-14.5) % Plt Count 238 (150-375) k/mm3 MPV 10.5 H (7.4-10.4) fl Immature Gran % (Auto) 0.2 (0-0.5) % Neut % (Auto) 53.5 (45.5-73.1) % Lymph % (Auto) 33.9 (18.3-44.2) % Isabella % (Auto) 9.4 H (2.6-8.5) % Eos % (Auto) 2.2 (0-4.4) % Baso % (Auto) 0.8 (0.2-1.2) % Lymph # (Auto) 1.73 (0.9-3.2) K/mm3 Isabella # (Auto) 0.5 (0.1-0.6) K/mm3 Eos # (Auto) 0.1 (0-0.3) K/mm3 Baso # (Auto) 0.0 (0.0-0.1) K/mm3 Abs Immat Gran (auto) 0.01 (0.00-0.031) K/mm3 Absolute Neuts (auto) 2.7 (1.3-6.7) K/mm3 Absolute Nucleated RBC 0.000 (0.0-0.012) K/mm3 Nucleated RBC % 0.0 (0.0-0.2) % Sodium 139 (137-145) mmol/L Potassium 4.0 (3.4-5.0) mmol/L Chloride 104 (98-107) mmol/L Carbon Dioxide 26 (22-30) mmol/L Anion Gap 9 (4-12) mmol/L BUN 23 H D (9-20) mg/dL Creatinine 0.81 (0.7-1.3) mg/dL Estim Creat Clear Calc Not Reportable Estimated GFR > 60 (59 - ) Glucose 98 (65-110) mg/dL Lactic Acid 1.3 (0.7-2.0) mmol/L Calcium 8.8 (8.4-10.2) mg/dL Total Bilirubin 0.4 (0.2-1.3) mg/dL AST 25 (17-59) U/L ALT 37 (6-50) U/L Alkaline Phosphatase 114 (38-126) U/L Total Protein 8.0 (6.3-8.2) g/dL Albumin 4.6 (3.5-5.1) g/dL Discharge Plan Discharge Clinical Impression: Breakthrough seizure Patient Disposition: Home, Self-Care Condition: Stable Instructions: Antibiotic Form Additional Instructions: Exam and workup today are reassuring. Please make sure that you are taking your Keppra twice per day as prescribed unless otherwise directed by your neurologist or you may continue to have these breakthrough seizures. If you have any new or worsening symptoms please return to the ER for further evaluation. Patient Language: Ivorian Prescriptions: No Action Jardiance 10 mg tablet 10 mg PO DAILY meloxicam 15 mg tablet 15 mg PO DAILY Qty: 30 0RF atorvastatin 10 mg tablet phenytoin sodium extended 100 mg capsule PO levothyroxine 75 mcg tablet albuterol sulfate [Ventolin HFA] 90 mcg/actuation HFA aerosol inhaler INHALATION risperidone 1 mg tablet Follow-up/Referrals: MARY,RAFIA CARDENAS [Primary Care Provider] - Time of Disposition: 19:49
--- OUTSIDE RECORDS SUMMARY | 2024-10-12 19:04 | XMS_ITS | Encounter Summary ---
Author Organization [facility] Address [address] [place] [address] Care Team Providers Care Spiral [place] Winder Name Role Phone Nika Saini Primary Care Provider [phone] Encounter Details Date Type Department Care Team (Late st Contact Info) Description 01/03/2023 MyChart Message Enc [facility] [address] [place], [place] [id number] [employer], [facility] Provider Air Quality Message Social History Tobacco Use Types Packs/Day Years Used Date Smoking Tobacco: Never Smokeless Tobacco: Current Chew 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 Alcohol Use Standard Drinks/Week Comments Not Currently 0 (1 standard drink = 0.6 oz pur e alcohol) PHQ-2 Answer Date Recorded Patient Health Questionnaire-2 Score 0 08/30/2022 Sex and Gender Information Value Date Recorded Sex Assigned at Male 07/22/2024 3:52 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 Legal Sex Male 8:41 PM CDT Gender Identity Male 07/22/2024 3:52 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 Sexual Orientation Not on file documented as of this encounter Plan of Treatment Upcoming Encounters Date Type Department Care Team (Late st Contact Info) Description 11/28/2024 2:00 PM CDT Office Visit [facility] - [id number] [place] [phone] Nika Saini FNP [address] [place] [address] 12/05/2024 11:20 AM CDT Office Visit [facility] - [address] [place] [address] Glo Dejesus MD [address] [place] [address] documented as of this encounter Visit Diagnoses Not on filedocumented in this encounter Additional Health Concerns Infection Onset Date Last Indicated Resolved Time COVID-19 Rule Out 05/02/2024 05/02/2024 05/02/2024 2:19 PM CDT Assessment Noted Time PHQ-9 Depression Total Score: 0 10/13/19 21 12:00 PM CDT documented as of this encounter Care Teams Spiral Spring Winder Relationship Specialty Start Date End Date Nika Saini FNP [address] [place] [address] PCP - General Nurse Practitioner Family 02/11/19 documented as of this encounter
--- OUTSIDE RECORDS SUMMARY | 2024-10-12 19:04 | XMS_ITS | Clinical Summary ---
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 [place] [phone] * OUTSIDE LAB (SCAN ORDER) (07/23/2024) Only the most recent of9 resultswithin the time period is included. 07/23/2024 [facility] Scanned SCANNING Final Resu lt * HEMOGLOBIN, GLYCOSYLATED (07/22/2024) [facility] HGB A1C 6.0 % [facility] 07/22/2024 Theresa Hernandez [facility] Final Result Performing Organization Address [facility] Co de Phone Number [facility] [address] [place] [address], [place] * COLOGUARD (EXACT SCIENCE) (11/22/2023 11:57 AM CDT) Pathologist [facility] COLOGUARD RESULT Negative Negative [facility] (CLIA #:[id number]) Comment: NEGATIVE TEST RESULT. A negative Cologuard result indicates a low likelihood that a colorectal cancer (CRC) or advanced adenoma (adenomatous polyps with more advanced pre-malignant features) is present. The chance that a person with a negative Cologuard test has a colorectal cancer is less than 1 in 1500 (negative predictive value >99.9%) or has an advanced adenoma is less than 5.3% (negative predictive value 94.7%). These data are based on a prospective cross-sectional study of 10,000 individuals at average risk for colorectal cancer who were screened with both Cologuard and colonoscopy. (Usman Keith al, N Engl J Med 2014;370(14):8997-0082) The normal value (reference range) for this assay is negative. COLOGUARD RE-SCREENING RECOMMENDATION: Periodic colorectal cancer screening is an important part of preventive healthcare for asymptomatic individuals at average risk for colorectal cancer. Following a negative Cologuard result, the [employer] and U.S. Multi-Society Task Force screening guidelines recommend a Cologuard re-screening interval of 3 years. References: [employer] Guideline for Colorectal Cancer Screening: https://www.cancer.org/cancer/tikci-jnwcmm-uulrst/rcjripjrf-hipwwleim-mwgbgle/ac s-rec ommendations.html.; Lloyd ALARCON, Oscar JAMES, Li GouldK, Colorectal Cancer Screening: Recommendations for Physicians and Patients from the U.S. Multi-Society Task Force on Colorectal Cancer Screening , Am J Gastroenterology 2017; 112:8243-5451. TEST DESCRIPTION: Composite algorithmic analysis of stool DNA-biomarkers with hemoglobin immunoassay. Quantitative values of individual biomarkers are not reportable and are not associated with individual biomarker result reference ranges. Cologuard is intended for colorectal cancer screening of adults of either sex, 45 years or older, who are at average-risk for colorectal cancer (CRC). Cologuard has been approved for use by the U.S. FDA. The performance of Cologuard was established in a cross sectional study of average-risk adults aged 50-84. Cologuard performance in patients ages 45 to 49 years was estimated by sub-group analysis of near-age groups. Colonoscopies performed for a positive result may find as the most clinically significant lesion: colorectal cancer [4.0%], advanced adenoma (including sessile serrated polyps greater than or equal to 1cm diameter) [20%] or non- advanced adenoma [31%]; or no colorectal neoplasia [45%]. These estimates are derived from a prospective cross-sectional screening study of 10,000 individuals at average risk for colorectal cancer who were screened with both Cologuard and colonoscopy. (Usman Keith al, N Engl J Med 2014;370(14):8532-5285.) Cologuard may produce a false negative or false positive result (no colorectal cancer or precancerous polyp present at colonoscopy follow up). A negative Cologuard test result does not guarantee the absence of CRC or advanced adenoma (pre-cancer). The current Cologuard screening interval is every 3 years. ([employer] and U.S. Multi-Society Task Force). Cologuard performance data in a 10,000 patient pivotal study using colonoscopy as the reference method can be accessed at the following location: www.TrafficCast.Cliq/results. Additional description of the Cologuard test process, warnings and precautions can be found at www.cologPrecise Light Surgicalrd.Cliq. STOOL STOOL SPECIMEN / Unknown 11/22/2023 11:57 AM CDT 11/23/2023 9:57 AM CDT Theresa Hernandez ESCALATOR OPERATOR BODY FLUIDS AND STOOLS ORDERAB LES Final Result Performing Organization Address City/State/[facility] Co de Phone Number [facility] ([address] [facility]) [address] [place] [address], [employer] (CLIA #:[id number]) [address] [place] [address] from Last 3 Months or Most Recently Relevant to Health Maintenance Insurance [employer] Care Teams Rhia Relationship Specialty Start Date End Date Theresa Hernandez FNP [address] [place] [address] [phone] PCP - General Nurse Practitioner Family 02/11/19
--- OUTSIDE RECORDS SUMMARY | 2024-10-12 19:04 | XMS_ITS | Data Portability ---
Author Organization [place] - [facility] [employer], Main Office Address [address] [place] [address] Care Team Providers Care Lead Nuclear Medicine Technologist Name Role Phone THERESA HERNANDEZ Primary Care Provider MARY THERESA Referring Provider [phone] Assessment Encounter Date Assessment Date Assessment LastModified by Organization Details LastModified Time 02/27/2023 02/27/2023 Patient presents hip pain right. He is more tender over the sacroiliac region he has got tenderness to palpation pain to manipulation neurologically he is grossly intact. He has fairly good strength good good hip motion but he is quite tender over the sacroiliac region radiates down his leg. I have discussed treatment options in detail risks benefits limitations and alternatives. Will treat for sacroiliac pain I injected with 20 mg Kenalog 4 cc 1% lidocaine. For prescription drug management will try prednisone taper. I will see him in a month for follow-up after therapy. [email or web address] Not available 02/27/2023 14:31:07 03/27/2023 03/27/2023 Patient returns sacroiliac pain right. He has had a nice response to conservative treatment I think he can be dismissed. Pain for the most part has resolved. He will continue with exercise at home. He is taking anti-inflammatory medication Voltaren and that seems to help. I will see him back on an as-needed basis discussed. [email or web address] Not available 03/27/2023 13:47:20 Plan of Treatment Reminders Order Date Submit Date Provider Last Modified By Organization Details Last Modified Time Details Appointments None recorded. Lab None recorded. Referral physical therapist referral - patient to schedule 2022 023 [facility], [address] [facility] [address], [place], [address], 14:45:28 Procedures injection/ aspiration joint/burs a (PROC) - in office procedure, administer ed by provider 2022 023 [email or web address] In-Office Order, Internal Use Only DO Not Attach Compendium DO Not Attach Compendium, Do Not Delete/merge, [id number] 14:19:54 Surgeries None recorded. Imaging XR, hip + pelvis, unilateral 2022 023 [email or web address] [facility] [place], [facility] [facility] [address] [facility] [address], [place], [address], 14:43:39 Medication Orders Kenalog 10 mg/mL suspension for injection 2022 023 [email or web address] 58 [id number], [address] [facility], [place], [address], 3 14:24:57 ropivacain e (PF) 5 mg/mL (0.5 %) injection solution 2022 023 [id number], [address] [facility], [place], [address], 3 14:24:57 prednisone 10 mg tablets in a dose pack 2022 023 [email or web address] 58 [id number], [address] [facility], [place], [address], 3 14:32:08 Patient TargetsNo targets recorded. Patient InstructionsNo instructions recorded. Reason for Referral Physical Therapist Referral for Pain in right hip joint patient to schedule Referring Physician: Arash Madrid, Orthopedic Surgery, Encounter Date: 02/27/2023 Results Created Date Observation Date Name Description Value Unit Range Abnormal Flag Note LastModifiedBy Organization Detail LastModifiedTime 02/28/20 23 XR, hip + pelvi s, unila teral No observ ation record ed. zuly [facility] [place] [address], [place], [address], 02/27/2023 14:31:20 09/03/19 25 08/29/2024 XR, knee, 3 view No observ ation record ed. Not Available 08/10 15:55:57 09/03/19 25 08/29/2024 XR, hip, unila teral , 2 or 3 view No observ ation record ed. Not Available 08/10 15:55:57 09/03/19 25 08/29/2024 XR, lumba r spine No observ ation record ed. Not Available 08/10 15:55:57 Result Notes None recorded. Problems Name Problem SNOMED Code Status Onset Date Resolution Date Notes Provider Name and Address Organization Details Recorded Time Pain in right hip joint 3265023433189 02 Active 2022 GENE Rice [facility], [employer] 14:03:55 Pain in right sacroiliac joint 5115418111334 9107 Active 2022 Arash Madrid MD [address] [facility] [address], [place], [address], [employer] 14:31:27 Problem Notes None recorded. Procedures Surgical History Date Name Laterality Status Provider Name and Address Organization Details Recorded Time Ortho - Cortisone Injection completed Arash Madrid MD [address], [place], [address], [employer] 02/27/2023 14:30:16 Knee Replacement completed GENE Rice [employer] [facility] [employer] 02/27/2023 14:03:18 Imaging Results Imaging Date Name Status [facility]Modified by [facility] Details LastModified Time 02/27/2023 XR, hip + pelvis, unilateral completed zuly [facility] [place] [address], [place], [address], 02/27/2023 14:31:20 08/29/2024 XR, knee, 3 view completed Information not available 09/03/2024 15:55:57 08/29/2024 XR, hip, unilateral, 2 or 3 view completed Information not available 09/03/2024 15:55:57 08/29/2024 XR, lumbar spine completed Information not available 09/03/2024 15:55:57 Procedure Notes None recorded. Medical Equipment None Reported. Allergies Allergen ID Allergen Name Allergen Category Reaction Reaction Severity Criticality Documentation Date Start Date Code Code System Note Provider Name and Address Organization Details Recorded Time 57336 Product containin g penicilli n (product) medicatio n Not available Not available Not available 02/27/2023 19763 8001 GENE Pandya [place] [employer] 14:02:40 Medications Name Sig Start Date Stop Date Status Note LastModified by Organization Details LastModified Time cyclobenzap rine 10 mg tablet active Not Available Not Available Not Available prednisone 10 mg tablet PLEASE SEE ATTACHED FOR DETAILED DIRECTION S active Not Available Not Available No t Available doxycycline hyclate 100 mg capsule TAKE 1 CAPSULE BY MOUTH TWICE A DAY FOR 10 DAYS active Not Available Not Available No t Available ipratropium 0.5 mg-albutero l 3 mg (2.5 mg base)/3 mL nebulizatio n soln active Not Available Not Available Not Available albuterol sulfate 2.5 mg/3 mL (0.083 %) solution for nebulizatio n 02/27 completed Not Available Not Available Not Available atorvastati n 10 mg tablet TAKE 1 TABLET BY MOUTH EVERYDAY AT BEDTIME active Not Available Not Available No t Available azithromyci n 250 mg tablet TAKE 2 TABLETS BY MOUTH TODAY, THEN TAKE 1 TABLET DAILY FOR 4 DAYS DIRECTED active Not Available Not Available No t Available ibuprofen 800 mg tablet active Not Available Not Available Not Available phenytoin sodium extended 100 mg capsule TAKE 1 CAPSULE BY MOUTH FOUR TIMES A DAY active Not Available Not Available No t Available risperidone 3 mg tablet TAKE 1 TABLET BY MOUTH DAILY active Not Available Not Available No t Available butalbital- acetaminoph en-caffeine 50 mg-325 mg-40 mg tablet 01/12 completed Not Available Not Available Not Available levothyroxi ne 75 mcg tablet TAKE 1 TABLET BY MOUTH EVERY DAY IN THE MORNING active Not Available Not Available No t Available prednisone 10 mg tablets in a dose pack Take 1 tab by mouth, 3 times a day for 3 daysTake 1 tab by mouth 2 times a day for 2 daysTake 1 tab by mouth once a day for 1 day 2022 active Not Available Not Available Not Avai lable alprazolam 0.5 mg tablet TAKE 1 TABLET BY MOUTH THREE TIMES A DAY NEEDED active Not Available Not Available No t Available methocarbam ol 750 mg tablet active Not Available Not Available Not Available Kenalog 10 mg/mL suspension for injection in office 2022 active [facility]: 0003- 0494- 20 Not Available Not Available Not Available benzonatate 100 mg capsule TAKE 1 CAPSULE BY MOUTH EVERY 8 HOURS NEEDED active Not Available Not Available No t Available ibuprofen 600 mg tablet 01/12 completed Not Available Not Available Not Available ondansetron 4 mg disintegrat ing tablet 01/12 completed Not Available Not Available Not Available risperidone 1 mg tablet TAKE 1 AND A HALF TABLET (1.5 MG) BY MOUTH IN THE MORNING AND EVENING active Not Available Not Available No t Available risperidone 0.5 mg tablet 01/12 completed Not Available Not Available Not Available naproxen 500 mg tablet 01/12 completed Not Available Not Available Not Available Ventolin HFA 90 mcg/actuati on aerosol inhaler active Not Available Not Available Not Available azithromyci n 500 mg tablet TAKE 1 TABLET BY MOUTH EVERY DAY active Not Available Not Available No t Available ciprofloxac in 0.3 %-dexametha sone 0.1 % ear drops,suspe nsion INSTILL 4 DROPS INTO BOTH EARS TWICE DAILY active Not Available Not Available No t Available ropivacaine (PF) 5 mg/mL (0.5 %) injection solution in office 2022 active [facility] [phone] -[phone]- [phone] Not Available Not Available Not Available Vitals Date Recorded Body height Provider Name an d Address Organization Details Last Updated DateTime 02/27/2023 177.8 cm GENE Rice [place] [facility] [employer] [facility] 02/27/2023 14:02:27 Date Recorded Body height Body mass index (BMI) Body weight Provider Name and Address Organization Details Last Updated DateTime 03/27/2023 177.8 cm 30.1 kg/m2 44834.4 g GENE Rice [facility] [employer] [facility] 03/27/2023 13:33:26 Social History Question Answer Notes LastModified by Organizat ion Details LastModified Time Tobacco Smoking Status Never Smoker GENE Rice null, [facility] [employer] [facility] 02/27/2023 14:03:11 What Is Your Level Of Alcohol Consumption? None [email or web address] Information not available 02/27/2023 Sex: Unknown Functional Status None recorded. Mental Status None recorded. Family History Nothing Reported. Medical History No medical history recorded. Past Encounters Encounter ID Performer Location Encounter Start Date Encounter Closed Date Diagnosis/Indication Diagnosis SNOMED-CT Code Diagnosis ICD10 Code Diagnosis Note [id number] Arash Madrid MD [facility] [place] [address] [place] [address] 02/27/2023 13:45:55 02/27/2023 14:43:38 Pain in right hip joint 1811378412 23857 M25.551 Pain in ri ght sacroiliac joint 8584891901 0846358 M53.3 [id number] Arash Madrid MD [facility] [place] [address] [place] [address] 03/27/2023 13:31:06 03/27/2023 14:17:27 Pain in right sacroiliac joint 8354188754 0035268 M53.3 Health Concerns Section Related Observation LastModified by Organization Detai ls LastModified Time None Recorded Concern Status LastModified by Organization Details LastModified Time None Recorded Advance Directives Directive None Recorded Payers Encounter Date Sequence Insurance Name Policy Number Policy Reina Covered Member ID Reina Member ID Guarantor Name 02/27/2023 1 [facility] (MEDICAID HMO) [id number] Aaron Lovett [id number] Aaron Lovett 03/27/2023 1 [facility] (MEDICAID HMO) [id number] Aaron Lovett [id number] Aaron Lovett Notes Date Note Type Note Provider Name and Address Organization Details Recorded Time 02/27/2023 text/html Back PainReporte d bypatient.Location :pain radiating to the buttocks Quality:dull Severity:worsening Duration:chronic Context:unusual activity; prior back problems Associated Symptoms:no fever; no weak limbs; no numbness of the legs/feet; no tingling; no incontinence; no shortness of breath Arash Madrid MD [address] [address], [place], [address], [employer] 02/27/2023 14:32:03 03/27/2023 text/html Patient returns hip pain right. The pain for the most part has resolved with the injection of the sacroiliac bursa on his right side. He has had a nice response to conservative treatment and feels that he is doing quite well. Arash Madrid MD [address] [address], [place], [address], [employer] 03/27/2023 13:47:34
--- OUTSIDE RECORDS SUMMARY | 2024-10-12 19:04 | XMS_ITS | Encounter Summary ---
Author Organization [facility] Address [address] [place] [address] Care Team Providers Care Applications Packager Name Role Phone Nika Saini Primary Care Provider [phone] Encounter Details Date Type Department Care Team (Latest Contact Info) Description 09/03/2024 Treasure Data Message Enc [facility] [place] [address] [id number] Ever, [facility] Provider Pain Management Referral Social History Tobacco Use Types Packs/Day Years Used Date Smoking Tobacco: Never Smokeless Tobacco: Former 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 Alcohol Use Standard Drinks/Week Comments Never 0 (1 standard drink = 0.6 oz pur e alcohol) PHQ-2 Answer Date Recorded Patient Health Questionnaire-2 Score 0 07/22/2024 Sex and Gender Information Value Date Recorded Sex Assigned at Male 07/22/2024 3:52 PM DISPUTE SPECIALIST Legal Sex Male 8:41 PM CDT Gender Identity Male 07/22/2024 3:52 PM DISPUTE SPECIALIST Sexual Orientation Not on file documented as of this encounter Plan of Treatment Upcoming Encounters Date Type Department Care Team (Late st Contact Info) Description 11/28/2024 2:00 PM CDT Office Visit [facility] Family & Internal Medicine - [address] [phone] Nika Saini FNP [address] [place] [address] 12/05/2024 11:20 AM CDT Office Visit [facility] [address] [facility], [address] [place] [address] Glo Dejesus MD [address] [place] [address] documented as of this encounter Visit Diagnoses Not on filedocumented in this encounter Additional Health Concerns Assessment Noted Time PHQ-9 Depression Total Score: 0 10/13/19 21 12:00 PM CDT documented as of this encounter Care Teams Applications Packager Relationship Specialty Start Date End Date Nika Saini FNP [address] [place] [address] [phone] PCP - General Nurse Practitioner Family 02/11/19 documented as of this encounter
--- OUTSIDE RECORDS SUMMARY | 2024-10-12 19:04 | XMS_ITS | CONTINUITY OF CARE DOCUMENT ---
Author Name celena dallas Address Unknown Organization [facility] Address [address] [address] [employer] [address] [facility] [address] [place] [address] Phone [phone] Care Team Providers Care Helicopter Crew Chief Name Role Phone Dayton Barkley MD Unavailable Dayton Barkley MD Unavailable [phone] PROBLEMS Condition Status Date Provider Notes Family History of CVA or Stroke: active ? Jas Gatica MD Chest pain active Morro Gatica MD HTN borderline active Morro Gatica MD Bipolar affective disorder active Morro luciano MD Vertigo active Morro Gatica MD Syncope active Joselito Nacht TIA active Joselito Nacht Prediabetes active Joselito Nacht Hyperlipidemia active Joselito Zheng Sinus tachycardia active Dayton Barkley MD Hypothyroidism active Dayton Barkley MD ENCOUNTERS Date Type Provider Location Encounter Diag nosis 8 - 0 In-person encounter Office Visit Dayton Barkley MD [place] [facility] Sinus tachycardiaHypothyroidism 7 - 8 In-person encounter Office Visit Dayton Barkley MD [facility] Office SyncopeTIAPrediabetesHyperlipidemia 1 - 1 In-person encounter Office Visit Morro Gatica MD [place] [facility] Family History of CVA or Stroke:Chest painHTN borderlineBipolar affective disorderVertigo VITAL SIGNS Date Observation Value Provider Body Mass Index (Ratio) 31.45 kg/m2 Anyi Barkley MD blood pressure, cuff size regular Ta bitsandi Sharma blood pressure, diastolic 72 mm[Hg] Ta bitha Sharma blood pressure, systolic 120 mm[Hg] Tab itha Sharma oxygen saturation, oximetry 97 % Lay Sharma pulse rate 102 /min Lay Sharma weight E&M 219.2 [lb_av] Lay Sharma respiratory rate E&M 12 /min Lay Sharma height E&M 70 [in_i] Lay Sharma Body Mass Index (Ratio) 31.28 kg/m2 Wero Zheng blood pressure, cuff size regular Ke rri Gruenenfelder blood pressure, diastolic 84 mm[Hg] Ke rri Gruenenfelder blood pressure, systolic 140 mm[Hg] Ker ri Kirstinnenfelder oxygen saturation, oximetry 95 % Hilary Jacobnfthaoer respiratory rate E&M 12 /min Hilary aguilar pulse rate 85 /min Hilary Gruenenfe lder weight E&M 218 [lb_av] Hilary Gruenenfe lder height E&M 70 [in_i] Hilary Gruenenfe er Body Mass Index (Ratio) 30.44 kg/m2 Ian Gatica MD blood pressure, diastolic 91 mm[Hg] Bea Singh blood pressure, systolic 139 mm[Hg] Janette Singh oxygen saturation, oximetry 97 % Katty Singh respiratory rate E&M 18 /min Timo Singh pulse rate 80 /min Katty benítez weight E&M 212.2 [lb_av] Katty fisher height E&M 70 [in_i] Katty Radford nsevita ALLERGIES Allergy Name Onset Date Reaction Criticality Status IVP DYE High Criticality active CODEINE High Criticality active TORADOL High Criticality active PENICILLIN High Criticality active RESULTS Date Observation Value Provider Reference Range Interpretation Location 1 folate, serum 7.4 NG/MLM [facility] 4.4 - 31.0 1 vitamin b12, serum 332.7 pg/mL [facility] 211.0 - 946.0 1 free thyroxine index 3.5 ??g/dL [facility] 4.4 - 11.4 Low 1 triiodothyronine uptake 1.1 TBI [facility] 0.8 - 1.3 1 thyroxine, serum, total 3.8 ??G/DL [facility] 4.5 - 11.7 Low 1 thyroid stimulating hormone, serum 6.220 ??IU/ML [facility] 0.270 - 4.200 High 1 very low density lipoproteins 37.0 mg/dL [facility] 5.0 - 40.0 1 LDL/HDL (low-density lipoprotein/high-den sity lipoprotein) ratio 3.1 RATIO [facility] - 1 lipoprotein, beta, serum, point, quantitative, calculated 137.0 (?) [facility] 0.0 - 100.0 High 1 HDL cholesterol, serum 44.0 mg/dL [facility] 35.0 - 55.0 1 cholesterol, serum 218.0 mg/dL [facility] 0.0 - 200.0 High 1 triglyceride, serum, fasting 185.0 mg/dL [facility] 0.0 - 150.0 High 1 ferritin, serum 148.3 ng/mL [facility] 30.0 - 400.0 1 anion gap, serum 12.7 [facility] - 1 albumin/globulin ratio, serum 1.4 g/dL [facility] 1.1 - 2.5 1 globulin, serum 2.9 [facility] 2.3 - 3.8 1 urea nitrogen/creatinine ratio, serum 17.5 [facility] - 1 Estimated Glomerular Filtration Rate (calc) 108.3 (?) [facility] 59.0 - 1 chloride, serum 99.3 mmol/L [facility] 98.0 - 107.0 1 potassium, serum 4.1 mmol/L [facility] 3.5 - 5.1 1 sodium, serum 139.0 mmol/L [facility] 136.0 - 145.0 1 creatinine, serum 0.8 mg/dL [facility] 0.7 - 1.2 1 carbon dioxide, venous blood 27.0 mmol/L [facility] 22.0 - 29.0 1 albumin, serum 4.2 g/dL [facility] 3.5 - 5.2 1 calcium, serum 9.0 mg/dL [facility] 8.6 - 10.2 1 aspartate aminotransferase (SGOT), serum 17.0 1/L [facility] 0.0 - 40.0 1 alkaline phosphatase, serum 121.0 1/L [facility] 40.0 - 130.0 1 alanine aminotransferase (SGPT), serum 27.0 1/L [facility] 0.0 - 41.0 1 protein, total, serum 7.1 g/dL [facility] 6.6 - 8.7 1 bilirubin, serum, total 0.3 mg/dL [facility] 0.0 - 1.2 1 urea nitrogen, blood 14.0 mg/dL [facility] 6.0 - 20.0 1 blood glucose, random 84.0 mg/dL [facility] 74.0 - 99.0 1 red blood cell distribution width, size density 38.5 fL [facility] - 1 immature granulocytes, percentage of total cells, blood 0.7 % [facility] - 1 nucleated red blood cells as percent of blood leukocytes 0.0 % [facility] - 1 red blood cell (erythrocyte) count, per high power field 0.0 10*3/UL [facility] - 1 eosinophils as percent of blood leukocytes 2.5 % [facility] - 1 neutrophils as percent of blood leukocytes 53.1 % [facility] - 1 Absolute Neutrophils 2.1 CELLS/UL [facility] 1.5 - 7.8 1 basophils as percent of blood leukocytes 0.5 % [facility] - 1 Absolute Basophils 0.0 CELLS/UL [facility] 0.0 - 0.2 1 monocytes as percent of blood leukocytes 11.7 % [facility] - 1 Absolute Monocytes 0.5 CELLS/UL [facility] 0.2 - 1.0 1 lymphocytes as percent of blood leukocytes 31.5 % [facility] - 1 Absolute Lymphocytes 1.3 CELLS/UL [facility] 0.9 - 3.9 1 mean platelet volume 10.7 (?) [facility] - 1 platelet count 247.0 THOUSAND/ UL [facility] 100.0 - 400.0 1 mean corpuscular hemoglobin concentration, RBC 34.2 G/DL [facility] 31.0 - 38.0 1 mean corpuscular hemoglobin, RBC 30.2 pg [facility] 25.0 - 35.0 1 mean corpuscular volume, RBC 88.3 fL [facility] 75.0 - 100.0 1 hematocrit, blood 43.9 % [facility] 35.0 - 55.0 1 hemoglobin, blood 15.0 g/dL [facility] 11.5 - 16.5 1 erythrocyte count, whole blood 5.0 MILLION/U L [facility] 3.5 - 5.5 1 iron, serum 162.0 ug/dL [facility] 31.0 - 144.0 High 1 iron saturation percent, serum 61.9 % [facility] 20.0 - 50.0 High 1 iron binding capacity, total 261.8 ug/dL [facility] 250.0 - 450.0 1 hemoglobin A1C, blood, as % of total hemoglobin 4.9 % [facility] 4.0 - 5.6 1 reticulocyte count, absolute 0.083 10*6 CELLS/UL [facility] - 1 reticulocyte count, blood, uncorrected 1.66 % [facility] 0.50 - 2.00 HISTORY OF MEDICATION USE Medication Status Instructions Dates Provider Indications Com ments alprazolam 0.5 mg tablet active Hilary Hooper cholecalciferol (vitamin D3) 1,250 mcg (50,000 unit) capsule active TAKE 1 CAPSULE BY MOUTH ONE TIME PER WEEK Hilary Hooper risperidone 3 mg tablet active Hilary Hooper phenytoin sodium extended 100 mg capsule active Hilary Sandie risperidone 1 mg tablet active Hilary Hooper albuterol sulfate 90 mcg/actuation HFA aerosol inhaler active Hilary Hooper atorvastatin 20 mg tablet active Hilary Hooper levothyroxine 75 mcg tablet active Hilary Sandie lisinopril 10 mg tablet active Hilary Sandie Viagra 100 mg tablet completed tablet by mouth as needed - Hilary Sandie risperidone 0.5 mg tablet completed as directed - Hilary Hooper ProAir HFA 90 mcg/actuation HFA aerosol inhaler completed every four hours as needed - Hilary Hooper phenytoin sodium extended 100 mg capsule completed capsule by mouth four times a day - Hilary Hooper meclizine 25 mg tablet,chewable completed tablet by mouth every eight hours as needed - Hilary Hooper cyclobenzaprine 10 mg tablet completed tablet by mouth three times a day - Hilary Hooper SOCIAL HISTORY Date Observation Value Provider alcohol use no Dayton Barkley MD passive cigarette sm patricia exposure no Dayton Barkley MD chewing tobacco use Current Dayton handy MD smoking status Never smoker Dayton robbins MD number of grandchildren Dayton Zheng alcohol use no Joselito Zheng passive cigarette sm patricia exposure no Joselito Zheng chewing tobacco use Current Joselito Rios cht smoking status Never smoker Joselito Zheng alcohol use no Morro Powers passive cigarette sm patricia exposure no Morro Gatica MD smoking status Never smoker Morro Gatica MD social history E&M Marital Statu s: Lisette bojorquez: 1 O ccupation: Disability Morro Gatica MD social history reviewed E&M revi ewed - no changes required Morro Gatica MD chewing tobacco use Current Kae Singh FAMILY HISTORY Family Member Condition Father Family History of Co ronary Artery Disease: Mother Family History of CV A or Stroke: INSURANCE PROVIDERS Payer name Policy type / Coverage type [place] [employer] party ID [employer] MEDICAID Medicaid [id number] ADVANCE DIRECTIVES Name Date DISCUSSED - NO DECISION MADE TREATMENT PLAN Date Name Performer Cardiology Dayton Powers Cardiology Dayton Powers Cardiology: B P today: 120/72 P rior BP: 140/84 (12/24/2023) His updated medication list for this problem includes: Lisinopril 10 Mg Tablet (Lisinopril) Dayton Barkley MD Cardiology Dayton Powers Cardiology: H is updated medication list for this problem includes: Atorvastatin 20 Mg Tablet (Atorvastatin) Dayton Barkley MD Cardiology Dayton Powers Cardiology Joselito Zheng Cardiology Joselito Zheng Cardiology Joselito Zheng Cardiology: B P today: 140/84 P rior BP: 139/91 (08/08/2016) His updated medication list for this problem includes: Lisinopril 10 Mg Tablet (Lisinopril) Joselito Zheng Cardiology Joselito Zheng Cardiology Morro Gatica MD Cardiology Morro Gatica MD Cardiology Morro Gatica MD Cardiology Morro Gatica MD Date Name TSH, free T4, total T3 Stress Regadenoson Complete Echo HEMOGLOBIN A1c VITAMIN B12 RETICULOCYTE COUNT IRON AND TOTAL IRON BINDING CAPACITY FOLATE, SERUM FERRITIN CBC (INCLUDES DIFF/P LT) THYROID PANEL WITH T SH, 3RD GENERATION LIPID PANEL COMPREHENSIVE METABO LIC PANEL W/EGFR STR - Adenosine Complete Echo HISTORY OF PROCEDURES Procedure Date Procedure Name Provider Procedure Notes S tatus EKG Dayton Barkley MD complet ed EKG Morro Gatica MD complete d SNOMED-CT: [id number] Current Medications Documented Morro Gatica MD completed
--- OUTSIDE RECORDS SUMMARY | 2024-10-12 19:04 | XMS_ITS | Clinical Summary ---
Author Organization [facility] Address [address] [place] [address] Care Team Providers Care Jig Worker Name Role Phone Unavailable Primary Care Provider Unavailabl e Source Comments [facility],non-owned Affiliates and Associated Physician Practices is amultiple site organization consisting of ambulatory clinics and hospital sitesin [place], [place], [place] and [place]. This disclosure is being madepursuant to the Care Everywhere program and may not contain all information available regarding this patient. Last updated 18.[facility] [employer] Social History Tobacco Use Types Packs/Day Years Used Date Smoking Tobacco: Never Assessed Sex and Gender Information Value Date Recorded Sex Assigned at Not on file Gender Identity Not on file Sexual Orientation Not on file Plan of Treatment Health Maintenance Due Date Last Done Comments COLON MONITORING 1965 COLONOSCOPY - COLON CA SCREENING 1965 CT COLONOGRAPHY - COLON CA SCREENING 1965 FIT - COLON CA SCREENING 1965 FLEX SIG - COLON CA SCREENING 1965 HIV SCREENING 10/05/1979 HEPATITIS C SCREENING 09/30/1982 DTAP/TDAP/TD VACCINES (1 - Tdap) 10/05/1983 PNEUMOCOCCAL VACCINE 50+ (1 of 1 - PCV) 2014 ZOSTER VACCINE (1 of 2) 2014 COVID-19 VACCINE (2 - 2023-2 5 season) 2024 07/11/2021 DEPRESSION SCREENING 07/09/2024 INFLUENZA VACCINE (Season Ended) 2025 COLOGUARD (AGES 45-75) - COL ON CA SCREENING 11/21/2026 11/22/2023 Colorectal Cancer Screening 11/21/2026 LIPID TESTING 11/18/2028 11/19/2023 Respiratory Syncytial Virus (RSV) Vaccine Pt: or over 60 yrs (1 - 1-dose 75+ series) 10/05/2039 HEPATITIS B VACCINE Aged Out No longe r eligible based on patient's age to complete this topic HIB VACCINE Aged Out No longer eligi ble based on patient's age to complete this topic HPV VACCINE Aged Out No longer eligi ble based on patient's age to complete this topic MENINGOCOCCAL (Group B) VACC INE SHARED DECISION-MAKING Aged Out No longer eligibl e based on patient's age to complete this topic MENINGOCOCCAL GROUPS A/C/Y/W VACCINE Aged Out No longer eligible b ased on patient's age to complete this topic PNEUMOCOCCAL VACCINE Aged Out No long er eligible based on patient's age to complete this topic
[2024-10-12 19:09] LABS: Basophils Percent Auto 0.8 % (0.2-1.2); Eosinophils Absolute Auto 0.1 K/mm3 (0-0.3); Eosinophils Percent Auto 2.2 % (0-4.4); Hematocrit 43.6 % (42.0-52.0); Hemoglobin 14.7 g/dL (14.0-18.0); Immature Granulocyte Absolute 0.01 K/mm3 (0.00-0.031); Immature Granulocyte Percent A 0.2 % (0-0.5); Lymphocytes Absolute Auto 1.73 K/mm3 (0.9-3.2); Lymphocytes Percent Auto 33.9 % (18.3-44.2); Mean Corpuscular HGB Conc 33.7 g/dl (32-36); Mean Platelet Volume 10.5 fl (7.4-10.4); Monocytes Absolute Auto 0.5 K/mm3 (0.1-0.6); Monocytes Percent Auto 9.4 % (2.6-8.5); Neutrophils Absolute Auto 2.7 K/mm3 (1.3-6.7); Neutrophils Percent Auto 53.5 % (45.5-73.1); Platelet Count Result 238 k/mm3 (150-375); Red Cell Distribution Width 11.9 % (11.5-14.5); White Blood Count 5.1 K/mm3 (4.5-10.0)
[2024-10-12] MEDS: levETIRAcetam 1500MG/NACL100ML 1,500 MG/100 ML BAG 400 MG IVPB (19:09)
[2024-10-12 19:18] LABS: Alanine Aminotransferase 37 U/L (6-50); Albumin Level 4.6 g/dL (3.5-5.1); Alkaline Phosphatase 114 U/L (38-126); Anion Gap 9 mmol/L (4-12); Aspartate Amino Transferase 25 U/L (17-59); Bilirubin,Total 0.4 mg/dL (0.2-1.3); Blood Urea Nitrogen 23 mg/dL (9-20); Calcium 8.8 mg/dL (8.4-10.2); Carbon Dioxide 26 mmol/L (22-30); Chloride 104 mmol/L (98-107); Estimated Glomerular Filt Rate > 60; Glucose 98 mg/dL (65-110); Lactic Acid Reflex 1.3 mmol/L (0.7-2.0); Sodium 139 mmol/L (137-145)
== END 2024-10-12 20:25 | disposition home or self-care (01) ==
PROVIDERS: Emergency Provider Physician Assistant; PCP Nurse Practitioner Family
DX: G40.909 Epilepsy, unspecified, not intractable, without status epilepticus (principal); T42.6X6A Underdosing of other antiepileptic and sedative-hypnotic drugs, initial encounter; Z91.128 Patient's intentional underdosing of medication regimen for other reason; J45.909 Unspecified asthma, uncomplicated; F31.9 Bipolar disorder, unspecified; F17.220 Nicotine dependence, chewing tobacco, uncomplicated; Z86.73 Personal history of transient ischemic attack (TIA), and cerebral infarction without residual deficits
CPT/HCPCS: 36415; 80053; 83605; 85025; 96374; 99284; J1953

== ENCOUNTER 2025-01-28 21:42 | Emergency (ER) | payer OTHER, SELFPAY ==
--- NOTE | ~2025-01-28 | XR_ITS ---
EXAMINATION: XR chest 1V DATE: 01/28/2025 22:17 INDICATION: Chest pain TECHNIQUE: frontal view of the chest was obtained. COMPARISON: Chest radiograph dated 06/09/2019 FINDINGS: Unchanged mild linear discoid atelectasis/scarring at the lateral left lower lung zone. No new airspa ce opacities, pulmonary edema, pleural effusion or pneumothorax. The cardiomediastinal silhouette is normal. Visualized bones and soft tissues are unremarkable. IMPRESSION: 1. No acute cardiopulmonary disease. Reviewed, dictated and finalized at location A.
--- OUTSIDE RECORDS SUMMARY | 2025-01-28 21:44 | XMS_ITS | Encounter Summary ---
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 to skilled nursing facility 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 Alcohol Use Standard Drinks/Week Comments Never 0 (1 standard drink = 0.6 oz pur e alcohol) PHQ-2 Answer Date Recorded Patient Health Questionnaire-2 Score 0 07/22/2024 Sex and Gender Information Value Date Recorded Sex Assigned at Male 07/22/2024 3:52 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 Legal Sex Male 8:41 PM CDT Gender Identity Male 07/22/2024 3:52 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 Sexual Orientation Not on file documented as of this encounter Plan of Treatment Upcoming Encounters Date Type Department Care Team (Late st Contact Info) Description 01/29/2025 3:00 PM CDT Office Visit [facility] Medical Group Family & Internal Medicine - [address] [address] Nika Saini FNP [facility] [address] [place] [address] 03/04/2025 1:40 PM CDT Office Visit [facility] Medical [facility] Multispecialty Care - [facility] [address] [facility], [address] [place] [address] Glo Dejesus MD [address] [place] [address] documented as of this encounter Visit Diagnoses Not on filedocumented in this encounter Additional Health Concerns Assessment Noted Time PHQ-9 Depression Total Score: 0 10/13/19 21 12:00 PM CDT documented as of this encounter Care Teams It Manager Relationship Specialty Start Date End Date Nika Saini FNP [address] [place] [address] [phone] PCP - General Nurse Practitioner Family 02/11/19 documented as of this encounter
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
--- OUTSIDE RECORDS SUMMARY | 2025-01-28 21:44 | XMS_ITS | Data Portability ---
Author Organization [facility], Main Office Address [address] [place] [address] Care Team Providers Care Medical Affairs Specialist Name Role Phone THERESA HERNANDEZ Primary Care Provider MARY THERESA Referring Provider [phone] Assessment Encounter Date Assessment Date Assessment LastModified [...] in a month for follow-up after therapy. zuly Not available 02/27/2023 14:31:07 03/27/2023 03/27/2023 Patient returns sacroiliac pain right. He has had a nice response to conservative treatment I think he can be dismissed. Pain for the most part has resolved. He will continue with exercise at home. He is taking anti-inflammatory medication Voltaren and that seems to help. I will see him back on an as-needed basis discussed. Not available 03/27/2023 13:47:20 Plan of Treatment Reminders Order Date Submit Date Provider Last Modified By Organization Details Last Modified Time Details Appointments None recorded. Lab None recorded. Referral physical therapist referral - patient to schedule 2022 023 [facility] [place] [facility], [address], [place], [address], 14:45:28 Procedures injection/ aspiration joint/burs a (PROC) - in office procedure, administer ed by provider 2022 023 [email or web address] In-Office Order, Internal Use Only DO Not Attach Compendium DO Not Attach Compendium, Do Not Delete/merge, [id number] 14:19:54 Surgeries None recorded. Imaging XR, hip + pelvis, unilateral 2022 023 [email or web address] [place], [address], [place], [address], 14:43:39 Medication Orders Kenalog 10 mg/mL suspension for injection 2022 023 [place] [address] [id number], [address] [facility], [place], [address], 3 14:24:57 ropivacain e (PF) 5 mg/mL (0.5 %) injection solution 2022 023 [place] [address] [id number], [address] [facility], [place], [address], 3 14:24:57 prednisone 10 mg tablets in a dose pack 2022 023 [place] [address] [id number], [address] [facility], [place], [address], 3 14:32:08 Patient TargetsNo targets recorded. Patient InstructionsNo instructions recorded. Reason for Referral Physical Therapist Referral for Pain of right hip joint patient to schedule Referring Physician: Arash Madrid, Orthopedic Surgery, Encounter Date: 02/27/2023 Results Created Date Observation Date Name Description Value Unit Range Abnormal Flag Note LastModifiedBy Organization Detail LastModifiedTime 02/28/20 23 XR, hip + pelvi s, unila teral No observ ation record ed. [facility] [place] [address], [place], [address], 02/27/2023 14:31:20 09/03/19 25 08/29/2024 XR, knee, [...] and Address Organization Details Recorded Time Pain of right hip joint 0253215415294 02 Active 2022 GENE Rice null, [facility] 14:03:55 Pain in right sacroiliac joint 8124043463150 9107 Active 2022 Arash Madrid MD [address] [address], [place], [address], [facility] 14:31:27 Problem Notes None recorded. Procedures Surgical History Date Name Laterality Status Provider Name and Address Organization Details Recorded Time Ortho - Cortisone Injection completed Arash Madrid MD [address] [address], [place], [address], [facility] 02/27/2023 14:30:16 Knee Replacement completed GENE Rice [facility] 02/27/2023 14:03:18 Imaging Results None recorded. Procedure Notes None recorded. Medical Equipment None Reported. Allergies Allergen ID Allergen Name Allergen Category Reaction Reaction Severity Criticality Documentation Date Start Date Code Code System Note Provider Name and Address Organization Details Recorded Time 56516 Product containin g penicilli n (product) medicatio n Not available Not available Not available 02/27/2023 76723 8001 SNOMED Karrie Earle, RMFuentes null, [place] - [facility] 14:02:40 Medications Name Sig Start Date Stop [...] active Not Available Not Available Not Available meloxicam 15 mg tablet active Not Available Not Available [...] suspension for injection in office 2022 active [facility]: 0003- 0494- 20 Not Available Not Available [...] %) injection solution in office 2022 active [facility] 79045 -064- 01 Not Available Not Available Not Available Vitals Date Recorded Body height Provider Name an d Address Organization Details Last Updated DateTime 02/27/2023 177.8 cm GEEN Rice [facility] 02/27/2023 14:02:27 Date Recorded Body height Body mass index (BMI) Body weight Provider Name and Address Organization Details Last Updated DateTime 03/27/2023 177.8 cm 30.1 kg/m2 67262.4 g GENE Rice [facility] 03/27/2023 13:33:26 Social History None recorded. Functional Status Question Answer Note LastModified by Organization D etails LastModified Time What is your level of alcohol consumption? None [email or web address] Information not available 02/27/2023 Mental Status None recorded. Family History Nothing Reported. Medical History No medical history recorded. Past Encounters Encounter ID Performer Location Encounter Start Date Encounter Closed Date Diagnosis/Indication Diagnosis SNOMED-CT Code Diagnosis ICD10 Code Diagnosis Note [id number] Arash Madrid MD [facility] [place] [address] [place] [address] 02/27/2023 13:45:55 02/27/2023 14:43:38 Pain of right hip joint 8193514382 98192 M25.551 Pain in ri ght sacroiliac joint 8986005076 9080220 M53.3 [id number] Arash Madrid MD [facility] [place] [address] [place] [address] 03/27/2023 13:31:06 03/27/2023 14:17:27 Pain in right sacroiliac joint 2560522340 5921318 M53.3 Health Concerns Section Related Observation LastModified by Organization Detai ls LastModified Time None Recorded Concern Status LastModified by Organization Details LastModified Time None Recorded Advance Directives Directive None Recorded Payers Insurance Date Sequence Insurance Name Policy Number Policy Reina Covered Member ID Reina Member ID Guarantor Name 04/07/2023 2 [place] Aaron Lovett [id number] Aaron Lovett 04/07/2023 1 [facility] (MEDICAID HMO) [id number] Aaron Lovett [id number] Aaron Lovett 02/26/2023 1 [facility] ON OR AFTER 01/06/21 (MEDICAID REPLACEMENT - HMO) Aaron Lovett [id number] Aaron Lovett 09/03/2024 1 [facility] (MEDICAID HMO) [id number] Aaron Lovett [id number] Aaron Lovett 02/26/2023 1 [facility] PRIOR TO 01/06/2021 (MEDICAID REPLACEMENT - HMO) Aaron Lovett [id number] Aaron Lovett Notes Date Note Type Note Provider Name and Address Organization Details Recorded Time 02/27/2023 text/html Back PainReporte d bypatient.Location :pain radiating to the buttocks Quality:dull Severity:worsening Duration:chronic Context:unusual activity; prior back problems Associated Symptoms:no fever; no weak limbs; no numbness of the legs/feet; no tingling; no incontinence; no shortness of breath Arash Madrid MD [address] [place] [address], [address], [facility] [employer] [facility] 02/27/2023 14:32:03 03/27/2023 text/html Patient returns hip pain right. The pain for the most part has resolved with the injection of the sacroiliac bursa on his right side. He has had a nice response to conservative treatment and feels that he is doing quite well. Arash Madrid MD [address] [place] [address], [address] [address], [place], [address], [facility] [employer] [facility] [employer] [facility] 03/27/2023 13:47:34
--- OUTSIDE RECORDS SUMMARY | 2025-01-28 21:44 | XMS_ITS | Encounter Summary ---
Author Organization [facility] Address [address] [place] [address] Care Team Providers Care Supervisor [employer]builders [employer] Name Role Phone Nika Saini Primary Care Provider [phone] Encounter Details Date Type Department Care Team (Late st Contact Info) Description 01/03/2023 MyChart Message Enc [facility] [address] [place], [place] [id number] [place] [employer], [facility] Provider Air Quality Message Social History Tobacco Use Types Packs/Day Years Used Date Smoking Tobacco: Never Smokeless Tobacco: Current Chew Comments:provider to family and marriage counsellor Alcohol Use Standard Drinks/Week Comments Not Currently 0 (1 standard drink = 0.6 oz pur e alcohol) PHQ-2 Answer Date Recorded Patient Health Questionnaire-2 Score 0 08/30/2022 Sex and Gender Information Value Date Recorded Sex Assigned at Male 07/22/2024 3:52 PM SPARKER AND PATCHER Legal Sex Male 8:41 PM CDT Gender Identity Male 07/22/2024 3:52 PM SPARKER AND PATCHER Sexual Orientation Not on file documented as of this encounter Plan of Treatment Upcoming Encounters Date Type Department Care Team (Late st Contact Info) Description 01/29/2025 3:00 PM CDT Office Visit [facility] - [id number] [place] [address] Nika Saini FNP [address] [place] [address] 03/04/2025 1:40 PM CDT Office [facility] - [address] [place] [address] Glo Dejesus MD [address] [place] [address] documented as of this encounter Visit Diagnoses Not on filedocumented in this encounter Additional Health Concerns Infection Onset Date Last Indicated Resolved Time COVID-19 Rule Out 05/02/2024 05/02/2024 05/02/2024 2:19 PM CDT Assessment Noted Time PHQ-9 Depression Total Score: 0 10/13/19 21 12:00 PM CDT documented as of this encounter Care Teams Supervisor [employer] Relationship Specialty Start Date End Date Nika Saini FNP [address] [place] [address] PCP - General Nurse Practitioner Family 02/11/19 documented as of this encounter
--- OUTSIDE RECORDS SUMMARY | 2025-01-28 21:44 | XMS_ITS | Clinical Summary ---
Author Organization [facility] Address [address] [place] [address] Care Team Providers Care Financial Management Analyst Name Role Phone Nika Saini MARK Primary Care Provider [phone] Allergies Active Allergy Reactions Criticality Noted Date [...] 1 tablet by mouth every day nightly Active metaxalone (SKELAXIN) 800 MG tabletIndications :Chronic [...] levETIRAcetam (KEPPRA) 1000 MG tabletIndications :Seizure disorder (CMS/HCC HHS/HCC) Take 2 tablets (2,000 mg total) by mouth 2 (two) times daily. 360 tablet 3 025 2025 Active lacosamide (VIMPAT) 100 MG TabIndications:Se izure disorder (CMS/HCC HHS/HCC) Take 1 tablet (100 mg total) by mouth 2 (two) times daily. 60 tablet 5 025 2025 Active levETIRAcetam (KEPPRA) 1000 MG tabletIndications :Seizure disorder (CMS/HCC HHS/HCC) Take 1 tablet (1,000 mg total) by mouth 2 (two) times daily. 180 tablet 3 025 2024 Discontinued levETIRAcetam (KEPPRA) 1000 MG tabletIndications :Seizure disorder (CMS/HCC HHS/HCC) Take 1 tablet (1,000 mg total) by mouth 4 (four) times daily. 360 tablet 2 025 2024 Discontinued levETIRAcetam (KEPPRA) 1000 MG tabletIndications :Seizure disorder ([facility]) Take 2 tablets (2,000 mg total) by mouth 2 (two) times daily. 360 tablet 2 025 2024 Discontinued Active Problems Problem Noted [...] 02/11/2019 Mild intermittent asthma without complication (H /[facility]) 02/11/2019 Encounter for monitoring Dilantin therapy 2018 Hypothyroidism 08/28/2017 Essential (primary) hypertension 08/08/2016 Hypogonadism 11/08/2015 Low testosterone 09/13/2015 Erectile dysfunction 09/06/2015 Seizure disorder ([facility]) 02/26/2014 Bipolar disorder ([facility]) 02/26/2014 Resolved Problems Problem Noted Date Diagnosed Date Resolved Date Acute pain of right shoulder 06/21/2022 08/30/2022 Ear pain, bilateral 11/15/2020 08/30/19 Numbness and tingling of left arm and [...] Encounters Date Type Department Care Team Description 01/28/2025 10:00 AM CDT [facility] [address], [address] [place] [address] Glo Dejesus MD Follow Up 01/28/2025 Misc [facility] - [address], [address] [place] [address] Glo Dejesus MD 01/28/2025 Travel 01/19/2025 Misc [facility]ation [facility] [address] [facility], [address] [place] [phone] Mecca Clark NP 01/19/[address] [facility] [address] [facility], [address] [place] [phone] Odilia Chew MA 01/13/[address] [facility] [address] [facility], [address] [place] [phone] Glo Dejesus MD Medication 01/12/[address] [facility] [address] [facility], [address] [place] [phone] Leny Cheney MA 01/07/[address] [facility] [address] [facility], [address] [place] [phone] Glo Dejesus MD Appointment Request 12/05/2024 11:20 AM CDT Office Visit [facility] [address] [facility], [address] [place] [phone] Glo Dejesus MD Follow Up 12/05/2024 Travel 11/05/2024 Scan HEALTH INFO SRVCS Scanned, [facility] from Last 3 Months Immunizations Immunization Administration Dates Next Due PFIZER COVID-19 (ORIGINAL [...] Chew Tobacco Cessation:Counseling Given: Yes Comments:provider to job placement counselor Alcohol Use Standard Drinks/Week Comments Never 0 (1 standard drink = 0.6 oz pur e alcohol) PHQ-2 Answer Date Recorded Patient Health Questionnaire-2 Score 0 01/28/2025 Sex and Gender Information Value Date Recorded Sex Assigned at Male 07/22/2024 3:52 PM 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 Legal Sex Male 8:41 PM CDT Gender Identity Male 07/22/2024 3:52 PM BLENDER LABORER Sexual Orientation Not on file Last Filed Vital Signs Vital Sign Reading Time Taken Comments Blood Pressure 98/63 01/28/2025 9:40 AM CDT Pulse 65 01/28/2025 9:40 AM CDT Temperature 36.1 C (96.9 F) 10/08/2024 10:09 AM CDT Respiratory Rate 18 10/08/2024 10:09 AM CDT Oxygen Saturation 97% 01/28/2025 9:40 AM CDT Inhaled Oxygen Concentration - - Weight 98.9 kg (218 lb) 01/28/2025 9:40 AM CDT Height 177.8 cm (5' 10) 10/08/2024 10:09 AM CDT Body Mass Index 31.28 10/08/2024 10:09 AM CDT Plan of Treatment Upcoming Encounters Date Type Department Care Team (Late st Contact Info) Description 01/29/2025 3:00 PM CDT Office [facility] - [address] [address] Nika Saini FNP [address] [place] [address] 03/04/2025 1:40 PM CDT Office Visit [facility] Multispecialty Care - [address], [address] [place] [address] Glo Dejesus MD [address] [place] [address] Health Maintenance Due Date Last Done Comments Annual Physical 10/05/1968 Hepatitis C 1982 Pneumococcal Vaccine: 50+ Years (1 of 2 - PCV) 10/05/1983 Zoster Vaccines (1 of 2) 2014 RSV Immunization or 60+ Years (1 - Risk 60-74 years 1-dose series) 2024 ASCVD LDL 11/18/2024 11/19/2023, 03/10, 12/29/2021, Additional history exists COVID-19 Vaccine ( season) 2025 07/11/2021, 11/21/2020, 11/01/2020 Postponed from 03/09/2024 (Patient Refused) Colorectal Cancer Screening FIT-DNA (3 Years) 11/21/2026 11/22/2023, 11/22/2023 DTaP, Tdap and Td Vaccines (2 - Td or Tdap) 01/18/2029 01/18/2019 PHQ-2 (Physician [place]) Completed 01/28/2025 Meningococcal B Vaccine Aged Out No l onger eligible based on patient's age to complete this topic Meningococcal Vaccine Aged Out No breann sofia eligible based on patient's age to complete this topic RSV Immunizations Under 20 Months Aged Out No longer eligible based on patient's age to complete this topic Procedures Procedure Name Priority Date/Time Associated Diagnosis Comments COLOGUARD (EXACT SCIENCE) Routine 11/22/2023 11:57 AM CDT Screening for colon cancer LIPID PANEL Routine 11/19/2023 11:06 AM CDT from Last 3 Months or Most Recently Relevant to Health Maintenance Results * COLOGUARD (EXACT SCIENCE) (11/22/2023 11:57 AM CDT) COLOGUARD RESULT Negative Negative [employer] [employer] (CLIA #:[id number]) Comment: NEGATIVE TEST RESULT. A negative Cologuard [...] screened with both Cologuard and colonoscopy. (Usman Trejo et al, N Engl J Med 2014;370(14):0930-9574) The normal value (reference range) for this assay is negative. COLOGUARD RE-SCREENING RECOMMENDATION: Periodic colorectal cancer screening is an important part of preventive healthcare for asymptomatic individuals at average risk for colorectal cancer. Following a negative Cologuard result, the Citizen [place] Cancer Society and U.S. Multi-Society Task Force screening guidelines recommend a Cologuard re-screening interval of 3 years. References: [place] Cancer Society Guideline for Colorectal Cancer Screening: https://www.cancer.org/cancer/tarxg-hepelw-bgjybr/anztxfjqy-uubnayour-ompudms/ac s-rec ommendations.html.; Lloyd ALARCON, Oscar JAMES, Li GouldK, Colorectal Cancer Screening: Recommendations for Physicians and Patients from the U.S. Multi-Society Task Force on Colorectal Cancer Screening , Am J Gastroenterology 2017; 112:8902-4557. TEST DESCRIPTION: Composite algorithmic analysis of stool [...] (Usman Keith al, N Engl J Med 2014;370(14):2631-9388.) Cologuard may produce a false negative or false positive result (no colorectal cancer or precancerous polyp present at colonoscopy follow up). A negative Cologuard test result does not guarantee the absence of CRC or advanced adenoma (pre-cancer). The current Cologuard screening interval is every 3 years. (Citizen [place] Cancer Society and U.S. Multi-Society Task Force). Cologuard performance data in a 10,000 patient pivotal study using colonoscopy as the reference method can be accessed at the following location: www.[employer]/results. Additional description of the Cologuard test process, warnings and precautions can be found at www.[employer].com. STOOL STOOL SPECIMEN / Unknown 11/22/2023 11:57 AM CDT 11/23/2023 9:57 AM CDT us Nika Saini BREAD SLICER MACHINE BODY FLUIDS AND STOOLS ORDERAB LES Final Result [employer] ([facility] [facility]) [address] [place] [place] [address], [employer] (CLIA #:[id number]) [address] [place] [address] * (ABNORMAL) LIPID PANEL (11/19/2023 11:06 AM CDT) CHOLESTEROL 171 <200 mg/dL [facility], [place] HDL 36(L) > OR = 40 mg/dL [facility], [place] TRIGLYCERIDES 193(H) <150 mg/dL [facility] [place], [place] LDL (CALCULATED) 104(H) mg/dL (calc) [facility] [place] Comment: Reference range: <100 Desirable range <100 mg/dL for primary prevention; <70 mg/dL for patients with CHD or diabetic patients with > or = 2 CHD risk factors. LDL-C is now calculated using the Beena calculation, which is a validated novel method providing better accuracy than the Friedewald equation in the estimation of LDL-C. Yg HAY et al. PARI. 2013;310(19): 2695-7668 (http://education.[employer]/faq/KIG153) CHOL/HDL RATIO 4.8 <5.0 (calc) [facility], [place] NON HDL CHOLESTEROL 135(H) <130 mg/dL (calc) [facility] [place] Comment: For patients with diabetes plus 1 major ASCVD risk factor, treating to a non-HDL-C goal of <100 mg/dL (LDL-C of <70 mg/dL) is considered a therapeutic option. 11/19/2023 11:0 6 AM CDT 11/19/2023 11:10 AM CDT Narrative [facility] - EMILY ORDERS - 11/20/2023 6:47 AM CDT FASTING:YES PATIENT UNABLE TO VOID; ADVISED TO RETURN FOR COLLECTION. FASTING: YES Resulting Agency Comment Performing Organization Information: Site ID: [place] [facility] Address: [address] [place] [address] Director: Agapito Jean Baptiste Nika [facility] Final Result [facility] - EMILY ORDERS [facility] [phone] from Last 3 Months or Most Recently Relevant to Health Maintenance Insurance [employer] Care Teams Financial Management Analyst Relationship Specialty Start Date End Date Nika Saini FNP [address] [place] [address] PCP - General Nurse Practitioner Family 02/11/19
--- OUTSIDE RECORDS SUMMARY | 2025-01-28 21:44 | XMS_ITS | Clinical Summary ---
Author Organization [facility] Address [address] [place] [address] Care Team Providers Care Metal Temperer Name Role Phone Unavailable Primary Care Provider Unavailabl e Source Comments [facility],non-owned Affiliates and Associated Physician Practices is amultiple site organization consisting of ambulatory clinics and hospital sitesin [place], [place], [place] and [place]. This disclosure is being madepursuant to the Care Everywhere program and may not contain all information available regarding this patient. Last updated 18.[facility] [employer] Social History Tobacco Use Types Packs/Day Years Used Date Smoking Tobacco: Never Assessed Sex and Gender Information Value Date Recorded Sex Assigned at Not on file Legal Sex Male 6:20 AM TWISTING OPERATOR Gender Identity Not on file Sexual Orientation [...] 2024 07/11/2021 DEPRESSION SCREENING 07/09/2024 INFLUENZA VACCINE (#1) 2025 COLOGUARD (AGES 45-75) - COL ON [...] on patient's age to complete this topic [place] [id number]
--- OUTSIDE RECORDS SUMMARY | 2025-01-28 21:44 | XMS_ITS | Encounter Summary ---
Author Organization [facility] Address [address] [place] [address] Care Team Providers Care Auto Service Writer Name Role Phone Nika Saini MARK Primary Care Provider Encounter Details Date Type Department Care Team (Late st Contact Info) Description 01/28/2025 [facility] Documentation [facility] Medical [facility] Multispecialty Care - [facility] [address] [facility], [address] [place] [phone] Glo Dejesus MD 3 [place] [address] Social History Tobacco Use Types Packs/Day Years Used Date Smoking Tobacco: Never Smokeless Tobacco: Former Chew Comments:provider to pre parole counseling aide Alcohol Use Standard Drinks/Week Comments Never 0 (1 standard drink = 0.6 oz pur e alcohol) PHQ-2 Answer Date Recorded Patient Health Questionnaire-2 Score 0 01/28/2025 Sex and Gender Information Value Date Recorded Sex Assigned at Male 07/22/2024 3:52 PM SKEET OPERATOR Legal Sex Male 8:41 PM CDT Gender Identity Male 07/22/2024 3:52 PM SKEET OPERATOR Sexual Orientation Not on file documented as of this encounter Functional Status * Over the [...] as of this encounter Progress Notes * Odilia Chew MA - 01/28/2025 3:06 PM CDT [employer] EEG order faxed to [phone]. documented in this encounter Plan of Treatment Upcoming Encounters Date Type Department Care Team (Late st Contact Info) Description 01/29/2025 3:00 PM CDT Office Visit [facility] Family & Internal Medicine - [address] [address] Nika Saini FNP [address] [place] [address] 03/04/2025 1:40 PM CDT Office Visit [facility] Multispecialty Care - [facility] [address] [facility], [address] [place] [phone] Glo Dejesus MD 3 [place] [address] documented as of this encounter Visit Diagnoses Not on filedocumented in this encounter Additional Health Concerns Assessment Noted Time PHQ-9 Depression Total Score: 0 10/13/19 21 12:00 PM CDT documented as of this encounter Care Teams Auto Service Writer Relationship Specialty Start Date End Date Nika Saini FNP [address] [place] [address] PCP - General Nurse Practitioner Family 02/11/19 documented as of this encounter
--- OUTSIDE RECORDS SUMMARY | 2025-01-28 21:44 | XMS_ITS | Encounter Summary ---
Author Organization [facility] Address [address] [place] [address] Care Team Providers Care Workers Compensation Examiner Name Role Phone Nika Saini MARK Primary Care Provider [phone] Encounter Details Date Type Department Care Team (Latest Contact Info) Description 01/28/2025 Travel Social History Tobacco Use Types Packs/Day Years Used Date Smoking Tobacco: Never Smokeless Tobacco: Former Chew Comments:provider to corporate travel counselor Alcohol Use Standard Drinks/Week Comments Never 0 (1 standard drink = 0.6 oz pur e alcohol) PHQ-2 Answer Date Recorded Patient Health Questionnaire-2 Score 0 01/28/2025 Sex and Gender Information Value Date Recorded Sex Assigned at Male 07/22/2024 3:52 PM 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 Legal Sex Male 8:41 PM CDT Gender Identity Male 07/22/2024 3:52 PM SOILS TECHNICIAN Sexual Orientation Not on file documented as [...] MA Active documented as of this encounter Plan of Treatment Upcoming Encounters Date Type Department Care Team (Late st Contact Info) Description 01/29/2025 3:00 PM CDT Office Visit [facility] Medical Group Family & Internal Medicine [address] [address] Nika Saini FNP [address] [place] [address] 03/04/2025 1:40 PM CDT Office Visit [facility] Medical Group Multispecialty Care - [facility] [address] [facility], [address] [place] [address] Glo Dejesus MD 3 [place] [address] documented as of this encounter Visit Diagnoses Not on filedocumented in this encounter Additional Health Concerns Assessment Noted Time PHQ-9 Depression Total Score: 0 10/13/19 21 12:00 PM CDT documented as of this encounter Care Teams Workers Compensation Examiner Relationship Specialty Start Date End Date Nika Saini FNP [facility] [place] [address] PCP - General Nurse Practitioner Family 02/11/19 documented as of this encounter
[2025-01-28 21:45] VITALS: BP 125/88; PULSE 76; RESP 18; TEMP 36.9; O2SAT 98
--- NOTE | 2025-01-28 21:49 | ECG_ITS ---
Test Date: 2025-01-28 21:51:13 Measurements Intervals [place] Rate: 79 P: 26 TN: 191 QRS: 25 QRSD: 91 T: 54 QT: 330 QTc: 380 Interpretive Statements SINUS RHYTHM LOW QRS VOLTAGE IN PRECORDIAL LEADS [QRS DEFLECTION < 1.0 mV IN CHEST LEADS] No previous ECG available for comparison Electronically Signed On 01-30-2025 15:38:06 CDT by Scott Herron M.D.
[2025-01-28 22:04] LABS: Hematocrit 44.6 % (42.0-52.0); Hemoglobin 15.2 g/dL (14.0-18.0); Immature Granulocyte Percent A 0.2 % (0-0.5); Lymphocytes Absolute Auto 1.52 K/mm3 (0.9-3.2); Mean Corpuscular HGB Conc 34.1 g/dl (32-36); Mean Corpuscular Hemoglobin 29.5 pg (26-34); Mean Corpuscular Volume 86.4 fl (80-100); Nucleated Red Blood Cells Absolute Auto 0.000 K/mm3 (0.0-0.012); Nucleated Red Blood Cells Perc 0.0 % (0.0-0.2); Platelet Count Result 207 k/mm3 (150-375); Red Blood Count 5.16 M/mm3 (4.6-6.20); White Blood Count 4.7 K/mm3 (4.5-10.0)
[2025-01-28 22:34] LABS: Alanine Aminotransferase 41 U/L (6-50); Albumin Level 4.4 g/dL (3.5-5.1); Alkaline Phosphatase 88 U/L (38-126); Anion Gap 12 mmol/L (4-12); Aspartate Amino Transferase 31 U/L (17-59); Bilirubin,Total 0.4 mg/dL (0.2-1.3); Blood Urea Nitrogen 20 mg/dL (9-20); Calcium 8.9 mg/dL (8.4-10.2); Carbon Dioxide 22 mmol/L (22-30); Chloride 106 mmol/L (98-107); Estimated CRCL calculation 78 ml/min; Estimated Glomerular Filt Rate > 60; Glucose 132 mg/dL (65-110); Potassium 3.8 mmol/L (3.4-5.0); Sodium 140 mmol/L (137-145); Total Protein 7.6 g/dL (6.3-8.2)
[2025-01-28 22:40] LABS: Troponin I < 0.012 ng/mL (0.000-0.034)
--- NOTE | 2025-01-28 23:14 | PC.NURSE ---
Pt is ambulatory to triage desk with steady gait and states he is going ot leave. Pt was encouraged to stay. Pt states he feels better and doesn't want to wait. pt exited ED with steady. Pt left without being seen.
--- OUTSIDE RECORDS SUMMARY | 2025-01-28 23:24 | XMS_ITS | Encounter Summary ---
Author Organization [facility] Address [address] [place] [address] Care Team Providers Care Induction Heating Equipment Setter Name Role Phone Nika Saini MARK Primary Care Provider [phone] Reason for Visit * Reason Comments Follow Up Encounter Details Date Type Department Care Team (Late st Contact Info) Description 01/28/2025 10:00 AM CDT Office Visit [facility]ialty Care - [facility] [address] [facility], [address] [place] [address] Glo Weiss MD 3 [place] [address] Follow Up Social History Tobacco Use Types Packs/Day Years Used Date Smoking Tobacco: Never Smokeless Tobacco: Former Chew Tobacco Cessation:Counseling Given: Yes Comments:provider to student success counselor Alcohol Use Standard Drinks/Week Comments Never 0 (1 standard drink = 0.6 oz pur e alcohol) PHQ-2 Answer Date Recorded Patient Health Questionnaire-2 Score 0 01/28/2025 Sex and Gender Information Value Date Recorded Sex Assigned at Male 07/22/2024 3:52 PM QUALITY SYSTEMS TECHNICIAN Legal Sex Male 8:41 PM CDT Gender Identity Male 07/22/2024 3:52 PM QUALITY SYSTEMS TECHNICIAN Sexual Orientation Not on file documented [...] Weiss MD - 01/28/2025 10:00 AM CDT [facility] Medical Group Multispecialty Care - [address], [address] [facility] [address] Dept: [phone] Name: Aaron Lovett Date of : 1965 [...] past medical history of Anxiety and Seizure ([facility]). PSH He has a past surgical history [...] Description 01/29/2025 3:00 PM CDT Office Visit [facility] Family & Internal Medicine - [place] [place] [address] Nika Saini FNP [facility] [place] [address] 03/04/2025 1:40 PM CDT Office Visit [facility] Multispecialty Care - [address], [address] [place] [address] Glo Weiss MD 3 [place] [address] documented as of this encounter Visit Diagnoses Diagnosis Seizure disorder ([facility]) Unspecified epilepsy without mention of intractable epilepsy documented in this encounter Additional Health Concerns Assessment Noted Time PHQ-9 Depression Total Score: 0 10/13/19 21 12:00 PM CDT documented as of this encounter Care Teams Induction Heating Equipment Setter Relationship Specialty Start Date End Date Nika Saini FNP [address] [place] [address] PCP - General Nurse Practitioner Family 02/11/19 documented as of this encounter
--- OUTSIDE RECORDS SUMMARY | 2025-01-28 23:24 | XMS_ITS | Clinical Summary ---
Author Organization [facility] Address [address] [place] [address] Care Team Providers Care Credentialing Analyst Name Role Phone Unavailable Primary Care Provider Unavailabl e Source Comments [facility],non-owned Affiliates and Associated Physician Practices is amultiple site organization consisting of ambulatory clinics and hospital sitesin [place], [place], [place] and [place]. This disclosure is being madepursuant to the Care Everywhere program and may not contain all information available regarding this patient. Last updated 18.[facility] [employer] Social History Tobacco Use Types Packs/Day Years Used Date Smoking Tobacco: Never Assessed Sex and Gender Information Value Date Recorded Sex Assigned at Not on file Legal Sex Male 6:20 AM UR COORDINATOR Gender Identity Not on file Sexual Orientation [...] patient's age to complete this topic [place] [address] [place] [address]
--- OUTSIDE RECORDS SUMMARY | 2025-01-28 23:24 | XMS_ITS | Clinical Summary ---
Author Organization [facility] Address [address] [place] [address] Care Team Providers Care Wink Cutter Operator Name Role Phone Nika Saini MARK Primary Care Provider [phone] Allergies Active Allergy Reactions Criticality Noted Date [...] levETIRAcetam (KEPPRA) 1000 MG tabletIndications :Seizure disorder ([facility]) Take 2 tablets (2,000 mg total) by [...] 02/11/2019 Mild intermittent asthma without complication ([facility]) 02/11/2019 Encounter for monitoring Dilantin therapy 2018 Hypothyroidism 08/28/2017 Essential (primary) hypertension 08/08/2016 Hypogonadism 11/08/2015 Low testosterone 09/13/2015 Erectile dysfunction 09/06/2015 Seizure disorder ([facility]) 02/26/2014 Bipolar disorder ([facility]) 02/26/2014 Resolved Problems Problem Noted Date Diagnosed [...] Description 01/28/2025 10:00 AM CDT [facility] [address], [address] [place] [address] Glo Dejesus MD Follow Up 01/28/2025 Misc [facility]ation [facility] - [address], [address] [place] [address] Glo Dejesus MD 01/28/2025 Travel 01/19/2025 Misc [facility] [address] [facility], [address] [place] [phone] Mecca Clark NP 01/19/2025 Orders Only [facility] [address] [facility], [address] [place] [phone] Odilia Chew MA 01/13/2025 Telephone [facility] [address] [facility], [address] [place] [phone] Glo Dejesus MD Medication 01/12/2025 Orders Only [facility] [address] [facility], [address] [place] [address] Leny Cheney MA 01/07/2025 Telephone [facility] [address] [facility], [address] [place] [address] Glo Dejesus MD Appointment Request 12/05/2024 11:20 AM CDT Office Visit [facility] [address] [facility], [address] [place] [address] Glo Dejesus MD Follow Up 12/05/2024 Travel [...] Chew Tobacco Cessation:Counseling Given: Yes Comments:provider to claims counsel Alcohol Use Standard Drinks/Week Comments Never 0 (1 standard drink = 0.6 oz pur e alcohol) PHQ-2 Answer Date Recorded Patient Health Questionnaire-2 Score 0 01/28/2025 Sex and Gender Information Value Date Recorded Sex Assigned at Male 07/22/2024 3:52 PM TECHNICAL INSPECTOR Legal Sex Male 8:41 PM CDT Gender Identity Male 07/22/2024 3:52 PM TECHNICAL INSPECTOR Sexual Orientation Not on file Last Filed [...] Description 01/29/2025 3:00 PM CDT Office Visit [facility] Medical Group Family & Internal Medicine - [address] [address] Nika Saini FNP [address] [place] [address] 03/04/2025 1:40 PM CDT Office Visit [facility] Multispecialty Care - [address], [address] [place] [address] Glo Dejesus MD 3 [place] [address] Health Maintenance Due Date Last Done Comments [...] Td or Tdap) 01/18/2029 01/18/2019 PHQ-2 (Physician Hugo) Completed 01/28/2025 Meningococcal B Vaccine Aged Out [...] AM CDT) COLOGUARD RESULT Negative Negative [facility] (CLIA #:[id number]) Comment: NEGATIVE TEST RESULT. A negative Cologuard [...] Trejo et al, N Engl J Med 2014;370(14):2086-6502) The normal value (reference range) for this assay is negative. COLOGUARD RE-SCREENING RECOMMENDATION: Periodic colorectal cancer screening is an important part of preventive healthcare for asymptomatic individuals at average risk for colorectal cancer. Following a negative Cologuard result, the [place] Cancer Society and U.S. Multi-Society Task Force screening guidelines recommend a Cologuard re-screening interval of 3 years. References: [place] [employer] Guideline for Colorectal Cancer Screening: https://www.cancer.org/cancer/yfiby-kuvsfp-bdbcyt/ntitkvtld-dgghxhpis-jzhlkej/ac s-rec ommendations.html.; Lloyd ALARCON, Oscar JAMES, Li GouldK, Colorectal Cancer Screening: Recommendations for Physicians and Patients from the U.S. Multi-Society Task Force on Colorectal Cancer Screening , Am J Gastroenterology 2017; 112:4690-1820. TEST DESCRIPTION: Composite algorithmic analysis of stool [...] (Usman Keith al, N Engl J Med 2014;370(14):3164-8009.) Cologuard may produce a false negative or false positive result (no colorectal cancer or precancerous polyp present at colonoscopy follow up). A negative Cologuard test result does not guarantee the absence of CRC or advanced adenoma (pre-cancer). The current Cologuard screening interval is every 3 years. ([place] Cancer Society and U.S. Multi-Society Task Force). Cologuard performance data in a 10,000 patient pivotal study using colonoscopy as the reference method can be accessed at the following location: www.[employer]/results. Additional description of the Cologuard test process, warnings and precautions can be found at www.[employer].com. STOOL STOOL SPECIMEN / Unknown 11/22/2023 11:57 AM CDT 11/23/2023 9:57 AM CDT us Nika Saini GLASSWORKER BODY FLUIDS AND STOOLS ORDERAB LES Final Result [employer] ([facility] [facility]) [address] [place] [address], [employer] [place] (CLIA #:[id number]) [address] [place] [address] * (ABNORMAL) LIPID PANEL (11/19/2023 11:06 AM CDT) CHOLESTEROL 171 <200 mg/dL [facility] [place] HDL 36(L) > OR = 40 mg/dL [facility] [place] TRIGLYCERIDES 193(H) <150 mg/dL [facility] [place], [place] LDL (CALCULATED) 104(H) mg/dL (calc) [facility] [place] Comment: Reference range: <100 Desirable range <100 mg/dL for primary prevention; <70 mg/dL for patients with CHD or diabetic patients with > or = 2 CHD risk factors. LDL-C is now calculated using the Beena calculation, which is a validated novel method providing better accuracy than the Friedewald equation in the estimation of LDL-C. Yg HAY et al. PARI. 2013;310(19): 3295-8511 (http://education.Piki/faq/QFA347) CHOL/HDL RATIO 4.8 <5.0 (calc) [facility] [place] NON HDL CHOLESTEROL 135(H) <130 mg/dL (calc) [facility] [place] Comment: For patients with diabetes plus 1 major ASCVD risk factor, treating to a non-HDL-C goal of <100 mg/dL (LDL-C of <70 mg/dL) is considered a therapeutic option. 11/19/2023 11:0 6 AM CDT 11/19/2023 11:10 AM CDT Narrative [facility] - [facility] - 11/20/2023 6:47 AM CDT FASTING:YES PATIENT UNABLE TO VOID; ADVISED TO RETURN FOR COLLECTION. FASTING: YES Resulting Agency Comment Performing Organization Information: Site ID: [id number] Name: [facility] Address: [address] [place] [id number] Director: Agapito Jean Baptiste Nika [facility] Final Result [facility] [address] from Last 3 Months or Most Recently Relevant to Health Maintenance Insurance [employer] Care Teams Wink Cutter Operator Relationship Specialty Start Date End Date Nika Saini FNP [address] [place] [address] PCP - General Nurse Practitioner Family 02/11/19
--- OUTSIDE RECORDS SUMMARY | 2025-01-28 23:24 | XMS_ITS | Encounter Summary ---
Author Organization [facility] Address [address] [place] [address] Care Team Providers Care Inspector Receiving Name Role Phone Nika Saini MARK Primary Care Provider [phone] Encounter Details Date Type Department Care Team (Late st Contact Info) Description 01/28/2025 [facility] Documentation [facility] Medical Group Multispecialty Care - [facility] [address] [facility], [address] [place] [phone] Glo Dejesus MD 3 [place] [address] Social History Tobacco Use Types Packs/Day Years Used Date Smoking Tobacco: Never Smokeless Tobacco: Former Chew Comments:provider to adoption counselor Alcohol Use Standard Drinks/Week Comments Never 0 (1 standard drink = 0.6 oz pur e alcohol) PHQ-2 Answer Date Recorded Patient Health Questionnaire-2 Score 0 01/28/2025 Sex and Gender Information Value Date Recorded Sex Assigned at Male 07/22/2024 3:52 PM CLINICAL DATA MANAGEMENT MANAGER Legal Sex Male 8:41 PM CDT Gender Identity Male 07/22/2024 3:52 PM CLINICAL DATA MANAGEMENT MANAGER Sexual Orientation Not on file documented as [...] PM CDT [employer] EEG order faxed to [phone]. documented in this encounter Plan of Treatment Upcoming Encounters Date Type Department Care Team (Late st Contact Info) Description 01/29/2025 3:00 PM CDT Office Visit [facility] Family & Internal Medicine - [address] [address] Nika Saini FNP [address] [place] [address] 03/04/2025 1:40 PM CDT Office Visit [facility] Multispecialty Care - [facility] [address] [facility], [address] [place] [address] Glo Dejesus MD 3 [place] [address] documented as of this encounter Visit Diagnoses Not on filedocumented in this encounter Additional Health Concerns Assessment Noted Time PHQ-9 Depression Total Score: 0 10/13/19 21 12:00 PM CDT documented as of this encounter Care Teams Inspector Receiving Relationship Specialty Start Date End Date Nika Saini FNP [address] [place] [address] PCP - General Nurse Practitioner Family 02/11/19 documented as of this encounter
--- OUTSIDE RECORDS SUMMARY | 2025-01-28 23:24 | XMS_ITS | Encounter Summary ---
Author Organization [facility] Address [address] [place] [address] Care Team Providers Care Cadd Manager Name Role Phone Nika Saini Primary Care Provider [phone] Encounter Details Date Type Department Care Team (Late st Contact Info) Description 01/03/2023 MyChart Message Enc [facility] Medical [facility] [address] [place], [place] [id number] [employer], [facility] Provider Air Quality Message Social History Tobacco Use Types Packs/Day Years Used Date Smoking Tobacco: Never Smokeless Tobacco: Current Chew Comments:provider to housing counselor Alcohol Use Standard Drinks/Week Comments Not Currently 0 (1 standard drink = 0.6 oz pur e alcohol) PHQ-2 Answer Date Recorded Patient Health Questionnaire-2 Score 0 08/30/2022 Sex and Gender Information Value Date Recorded Sex Assigned at Male 07/22/2024 3:52 PM WOOD PROCESSING WORKER Legal Sex Male 8:41 PM CDT Gender Identity Male 07/22/2024 3:52 PM WOOD PROCESSING WORKER Sexual Orientation Not on file documented as of this encounter Plan of Treatment Upcoming Encounters Date Type Department Care Team (Late st Contact Info) Description 01/29/2025 3:00 PM CDT Office Visit [facility] Medical [facility] Family & Internal Medicine - [place] [address] [place] [address] Nika Saini FNP [address] [place] [address] 03/04/2025 1:40 PM CDT Office Visit [facility] Multispecialty Care - [address] [place] [address] Glo Dejesus MD 3 [place] [address] documented as of this encounter Visit Diagnoses Not on filedocumented in this encounter Additional Health Concerns Infection Onset Date Last Indicated Resolved Time COVID-19 Rule Out 05/02/2024 05/02/2024 05/02/2024 2:19 PM CDT Assessment Noted Time PHQ-9 Depression Total Score: 0 10/13/19 21 12:00 PM CDT documented as of this encounter Care Teams Cadd Manager Relationship Specialty Start Date End Date Nika Saini FNP [address] [place] [address] PCP - General Nurse Practitioner Family 02/11/19 documented as of this encounter
--- OUTSIDE RECORDS SUMMARY | 2025-01-28 23:24 | XMS_ITS | Encounter Summary ---
Author Organization [facility] Address [address] [place] [address] Care Team Providers Care Parts Control Clerk Name Role Phone Nika Saini MARK Primary Care Provider [phone] Encounter Details Date Type Department Care Team (Latest Contact Info) Description 01/28/2025 Travel Social History Tobacco Use Types Packs/Day Years Used Date Smoking Tobacco: Never Smokeless Tobacco: Former Chew Comments:provider to funeral planning counselor Alcohol Use Standard Drinks/Week Comments Never 0 (1 standard drink = 0.6 oz pur e alcohol) PHQ-2 Answer Date Recorded Patient Health Questionnaire-2 Score 0 01/28/2025 Sex and Gender Information Value Date Recorded Sex Assigned at Male 07/22/2024 3:52 PM PAPER MACHINE BACK TENDER Legal Sex Male 8:41 PM CDT Gender Identity Male 07/22/2024 3:52 PM PAPER MACHINE BACK TENDER Sexual Orientation Not on file documented as [...] Description 01/29/2025 3:00 PM CDT Office Visit [facility] Medical Group Family & Internal Medicine [address] [address] Nika Saini FNP [address] [place] [address] 03/04/2025 1:40 PM CDT Office Visit [facility] Medical Group Multispecialty Care - [facility] [address] [facility], [address] [place] [address] Glo Dejesus MD 3 [place] [address] documented as of this encounter Visit Diagnoses Not on filedocumented in this encounter Additional Health Concerns Assessment Noted Time PHQ-9 Depression Total Score: 0 10/13/19 21 12:00 PM CDT documented as of this encounter Care Teams Parts Control Clerk Relationship Specialty Start Date End Date Nika Saini FNP [facility] [place] [address] PCP - General Nurse Practitioner Family 02/11/19 documented as of this encounter
--- OUTSIDE RECORDS SUMMARY | 2025-01-28 23:24 | XMS_ITS | Encounter Summary ---
Author Organization [facility] Address [address] [place] [address] Care Team Providers Care Veterans' Coordinator Name Role Phone Nika Saiin Primary Care Provider [phone] Encounter Details Date Type Department Care Team (Latest Contact Info) Description 09/03/2024 [employer] Message Enc [facility] [place] [address] [phone] Ever, [facility] Provider Pain Management Referral Social History Tobacco Use Types Packs/Day Years Used Date Smoking Tobacco: Never Smokeless Tobacco: Former Chew Comments:provider to child welfare counselor Alcohol Use Standard Drinks/Week Comments Never 0 (1 standard drink = 0.6 oz pur e alcohol) PHQ-2 Answer Date Recorded Patient Health Questionnaire-2 Score 0 07/22/2024 Sex and Gender Information Value Date Recorded Sex Assigned at Male 07/22/2024 3:52 PM INSIDE STEWARD/STEWARDESS Legal Sex Male 8:41 PM CDT Gender Identity Male 07/22/2024 3:52 PM INSIDE STEWARD/STEWARDESS Sexual Orientation Not on file documented as of this encounter Plan of Treatment Upcoming Encounters Date Type Department Care Team (Late st Contact Info) Description 01/29/2025 3:00 PM CDT Office Visit [facility] Family & Internal Medicine - [address] [address] Nika Saini FNP [facility] [place] [address] 03/04/2025 1:40 PM CDT Office Visit [facility] Medical [facility] Multispecialty Care - [facility] [address] [facility], [address] [place] [address] Glo Dejesus MD 3 [place] [address] documented as of this encounter Visit Diagnoses Not on filedocumented in this encounter Additional Health Concerns Assessment Noted Time PHQ-9 Depression Total Score: 0 10/13/19 21 12:00 PM CDT documented as of this encounter Care Teams Veterans' Coordinator Relationship Specialty Start Date End Date Nika Saini FNP [address] [place] [address] [phone] PCP - General Nurse Practitioner Family 02/11/19 documented as of this encounter
== END 2025-01-28 23:14 | disposition left against medical advice (07) ==
PROVIDERS: Emergency Provider Student in an Organized Health Care Education/Training Program; PCP Nurse Practitioner Family
DX: R07.9 Chest pain, unspecified (principal)
CPT/HCPCS: 36415; 71045; 80053; 84484; 85025; 93005; 99199

== ENCOUNTER 2025-05-11 18:27 | Emergency (ER) | payer MEDICAID, SELFPAY ==
--- NOTE | ~2025-05-11 | CT_ITS ---
CT brain wo con HISTORY:AMS, seizure COMPARISON: None. TECHNIQUE: Axial images were obtained of the head without intravenous contrast. FINDINGS: No acute intracranial hemorrhage, mass effect or midline shift. No extra-axial fluid collections. The calvarium is intact. Visualized paranasal sinuses and mastoid air cells are clear. IMPRESSION: No acute intracranial hemorrhage or extra axial fluid collections. All CT scans at this facility are performed using low dose modulation techniques as appropriate to perform exam including the following: automated exposure control; use of iterative reconstruction technique; adjustment of the mA and/or kV according to patient size (this includes techniques or standardized protocols for targeted exams where dose is matched to indication/reason for exam). Reviewed, dictated and finalized at location S. O CLEANER IMPRESSION: No acute intracranial hemorrhage or extra axial fluid collections. All CT scans at this facility are performed using low dose modulation techniqu es as appropriate to perform exam including the following: automated exposure c ontrol; use of iterative reconstruction technique; adjustment of the mA and/or kV according to patient size (this includes techniques or standardized protocol s for targeted exams where dose is matched to indication/reason for exam).
--- NOTE | ~2025-05-11 | XR_ITS ---
XR chest 1V portable 05/11/2025 18:56 Indication: Altered mental status Procedure: AP portable chest Comparison: 01/28/2025 Findings: Heart size normal. No focal air space disease, pulmonary edema, pleural effusion or suspected pneumothorax. Impression: 1: No acute cardiopulmonary disease. Reviewed, dictated and finalized at location O. ATOPATHOLOGIST Impression: 1: No acute cardiopulmonary disease.
[2025-05-11 18:27] VITALS: BP 121/95; PULSE 82; RESP 19; TEMP 37.1; O2SAT 92
--- NOTE | 2025-05-11 18:36 | ECG_ITS ---
Test Date: 2025-05-11 18:36:26 Measurements Intervals [place] Rate: 82 P: 52 CO: 205 QRS: 55 QRSD: 96 T: 47 QT: 353 QTc: 415 Interpretive Statements SINUS RHYTHM Compared to ECG 01/28/2025 21:51:13 No significant changes Electronically Signed On 05-12-2025 21:17:45 CLIENT SERVICE COORDINATOR by Tg Hernandez M.D.
[2025-05-11 18:39] VITALS: O2SAT 95
--- NOTE | 2025-05-11 18:41 | ED_ITS ---
HPI - Seizure General Chief Complaint: Seizure Stated Complaint: Sz x 3 today Time Seen by Provider: 05/11/25 18:35 Source: EMS Mode of arrival: EMS Limitations: altered mental status History of Present Illness HPI Narrative: This is a 59-year-old male with history seizures on Depakote and Keppra who presents to the ED for seizures. Patient apparently had 3 seizure episodes today. He apparently has seizures daily but typically does improve from them. Today, he did not return to baseline prompting her to notify EMS. Per EMS, his depakote was recently increased. HPI is otherwise limited at this time due to patient's altered mental status. Seizure History: Yes Related Data Home Medications ?Medication ?Instructions ?Recorded ?Confirmed ?Last Taken ?Type albuterol sulfate 90 mcg/actuation inhalation 10/21/20 11/05/24 Unknown History aerosol inhaler (Ventolin HFA) atorvastatin 10 mg tablet 10/21/20 11/05/24 Unknown H istory levothyroxine 75 mcg tablet 10/21/20 11/05/24 Unknown History risperidone 1 mg tablet mg 10/21/20 11/05/24 Unknown History empagliflozin 10 mg tablet 10 mg PO DAILY 09/22/24 Unknown History (Jardiance) levetiracetam 1,000 mg tablet 2,000 mg PO Q12H 5 11/05/24 Unknown History (Keppra) Allergies Allergy/AdvReac Type Severity Reaction Status Date / Time codeine Allergy Severe Swelling Verified 01/28/25 21:50 Penicillins Allergy Severe Swelling Verified 01/28/25 21:50 of Lip/Tongue/Throat iodine Allergy Intermediate Hives / Verified 01/28/25 21:50 Red Face ketorolac Allergy Mild Hives Verified 01/28/25 21:50 benzonatate Allergy Unknown Vomiting Verified 01/28/25 21:50 steroids AdvReac Severe violent Uncoded 01/28/25 21:50 behavior Review of Systems 2 Review of Systems: ROS unobtainable: Yes unobtainable due to mental status PMFSH Past Medical History Medical History (Updated 05/11/25 @ 20:24 by Arie Boogie MD) Bipolar disorder Right wrist fracture Seizures 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 Brain tumor As child Asthma Surgical History Surgical History H/O right wrist surgery ORIF S/P right knee arthroscopy History of tonsillectomy Family History Family History Other Cerebrovascular accident Family history of alcoholism Family history of cardiovascular disease Family history of seizure disorder Social History Social History Smoking status: Never smoker Alcohol intake: never Substance use: never Do You Feel Safe in your Home?: Yes Lack of Transportation: No Lack of Food: Never True Current Housing: I Have Housing Concerned About Future Housing: No Difficulty Paying Gas/Electric Bills: No Difficulty Paying for Meds: No Currently Unemployed: YES Education: High School Diploma/GED Difficulty w/ Childcare or Family Care: No Gender identity (if verbalized by the patient): Male Exam 2 Narrative: APPEARANCE: Unresponsive EYES: PERRL HEENT: Normocephalic, atraumatic, OMM RESPIRATORY: No respiratory distress Clear to auscultation bilaterally with no rhonchi wheezing or rales. CARDIOVASCULAR: Regular rate and rhythm without murmurs rubs or gallops. ABDOMINAL: Soft, nontender, nondistended, no rebound or guarding MUSCULOSKELETAl: No obvious deformities. No clubbing, cyanosis or edema. NEURO: Unresponsive. SKIN:: Warm, dry. No rashes lesions or abrasions PSYCHIATRIC: Normal affect/mood, Course Vital Signs Vital signs: Vital Signs Temperature 98.8 F 05/11/25 18:27 Pulse Rate 82 05/11/25 18:27 Respiratory Rate 19 05/11/25 18:27 Blood Pressure 121/95 H 05/11/25 18:27 Pulse Oximetry 92 05/11/25 18:27 Oxygen Delivery Room Air 05/11/25 18:27 Temperature 98.8 F 05/11/25 18:27 Pulse Rate 82 05/11/25 18:27 Respiratory Rate 19 05/11/25 18:27 Blood Pressure 133/76 05/11/25 20:55 Pulse Oximetry 95 05/11/25 18:39 Oxygen Delivery Room Air 05/11/25 18:39 MDM - Seizure MDM Narrative Medical decision making narrative: [age] year old male Presenting for seizure activity. On initial evaluation patient was in unresponsive but protecting his airway, afebrile, hemodynamically stable. Differentials include but are not limited to: CVA, TIA, ICH, meningitis, UTI, cancer, drug intoxication, hypoglycemia, electrolyte abnormality, seizure Notable exam findings: Unresponsive, no focal deficits Notable lab findings: CBC and CMP without significant abnormalities. Lactic acid within normal limits. UA clear. UDS negative. Alcohol negative. Notable imaging findings: CT head showed no acute process. Chest x-ray showed no acute process. Patient had return of mental status to baseline. He was able to ambulate throughout the ED. on further discussion with the patient and , he has had a lot of stress at home recently which is likely the source of his seizure activity. He follows with Neurology at [facility]. He was advised to continue taking his antiepileptics as prescribed and was advised to call his neurologist tomorrow to potentially discuss increasing his antiepileptic regimen again. Patient and family were agreeable to this plan. Given strict return precautions. Medical Records Attestation: I reviewed the patient's medical records. Lab Data Attestation: I reviewed the patient's lab results. 05/11/25 18:50 05/11/25 18:50 Labs: Lab Results 05/11/25 Range/Units 18:50 WBC 6.3 (4.5-10.0) K/mm3 RBC 4.96 (4.6-6.20) M/mm3 Hgb 14.6 (14.0-18.0) g/dL Hct 42.7 (42.0-52.0) % MCV 86.1 (80-100) fl MCH 29.4 (26-34) pg MCHC 34.2 (32-36) g/dl RDW 11.9 (11.5-14.5) % Plt Count 213 (150-375) k/mm3 MPV 10.9 H (7.4-10.4) fl Immature Gran % (Auto) 0.3 (0-0.5) % Neut % (Auto) 75.4 H (45.5-73.1) % Lymph % (Auto) 14.6 L (18.3-44.2) % [place] % (Auto) 8.6 H (2.6-8.5) % Eos % (Auto) 0.5 (0-4.4) % Baso % (Auto) 0.6 (0.2-1.2) % Lymph # (Auto) 0.92 (0.9-3.2) K/mm3 [place] # (Auto) 0.5 (0.1-0.6) K/mm3 Eos # (Auto) 0.0 (0-0.3) K/mm3 Baso # (Auto) 0.0 (0.0-0.1) K/mm3 Abs Immat Gran (auto) 0.02 (0.00-0.031) K/mm3 Absolute Neuts (auto) 4.8 (1.3-6.7) K/mm3 Absolute Nucleated RBC 0.000 (0.0-0.012) K/mm3 Nucleated RBC % 0.0 (0.0-0.2) % Sodium 137 (137-145) mmol/L Potassium 3.6 (3.4-5.0) mmol/L Chloride 106 (98-107) mmol/L Carbon Dioxide 24 (22-30) mmol/L Anion Gap 7 (4-12) mmol/L BUN 15 D (9-20) mg/dL Creatinine 0.88 (0.7-1.3) mg/dL Estim Creat Clear Calc 93 ml/min Estimated GFR > 60 (59 - ) Glucose 109 (65-110) mg/dL Lactic Acid 1.3 (0.7-2.0) mmol/L Calcium 8.8 (8.4-10.2) mg/dL Total Bilirubin 0.6 (0.2-1.3) mg/dL AST 28 (17-59) U/L ALT 25 (6-50) U/L Alkaline Phosphatase 83 (38-126) U/L Total Creatine Kinase 77 (55-170) U/L Troponin I < 0.012 (0.000-0.034) ng/mL Total Protein 7.4 (6.3-8.2) g/dL Albumin 4.2 (3.5-5.1) g/dL Urine Color Yellow (Yellow) Urine Appearance Clear (Clear) Urine pH 8.0 (5.0-9.0) Ur Specific Bradner 1.014 (1.001-1.035) Urine Protein Negative (Negative) mg/dL Urine Glucose (UA) Negative (Negative) mg/dL Urine Ketones 1+ H (Negative) mg/dL Ur Blood (Man) Negative (Negative) Urine Nitrate Negative (Negative) Urine Bilirubin Negative (Negative) Urine Urobilinogen 1.0 (<2.0) mg/dL Leukocyte Esterase Rfl Negative (Negative) SUNI/UL Salicylates < 1.0 L (2-20) mg/dL Urine Opiates Screen Negative (Negative) Urine Methadone Screen Negative (Negative) Acetaminophen < 10 L (10-30) ug/mL Ur Barbiturates Screen Negative (Negative) Ur Phencyclidine Scrn Negative (Negative) Ur Amphetamine Screen Negative (Negative) U Benzodiazepines Scrn Negative (Negative) Urine Cocaine Screen Negative (Negative) U Cannabinoids Screen Negative (Negative) Ethyl Alcohol < 10 (<10) mg/dL Imaging Data Attestation: I personally reviewed and interpreted this imaging study as follows: My impression: Chest x-ray: Normal cardiac silhouette, no consolidations, no pleural effusions, no pulmonary vascular congestion Radiologist's impression: Impressions Chest X-Ray 05/11/25 18:59 Impression: 1: No acute cardiopulmonary disease. Head CT 05/11/25 19:27 IMPRESSION: No acute intracranial hemorrhage or extra axial fluid collections. All CT scans at this facility are performed using low dose modulation techniques as appropriate to perform exam including the following: automated exposure control; use of iterative reconstruction technique; adjustment of the mA and/or kV according to patient size (this includes techniques or standardized protocols for targeted exams where dose is matched to indication/reason for exam). ECG Data EKG #1: Attestation: I personally reviewed and interpreted this ECG as follows: ECG completion date: 05/11/25 ECG completion time: 21:51 Interpretation: Normal sinus rhythm, normal axis, normal intervals, no acute ST or T-wave changes Discharge Plan Discharge Clinical Impression: Epileptic seizure Patient Disposition: Home Condition: Stable Instructions: Antibiotic Form, Epilepsy (ED) Additional Instructions: Take your Keppra and Depakote as prescribed. Call your neurologist tomorrow to discuss potential dosage changes again. Return to the ED for any new or worsening symptoms Patient Language: [place] Islander Prescriptions: No Action Jardiance 10 mg tablet 10 mg PO DAILY meloxicam 15 mg tablet 15 mg PO DAILY Qty: 30 0RF levetiracetam [Keppra] 1,000 mg tablet 2,000 mg PO Q12H diclofenac sodium 75 mg tablet,delayed release (DR/EC) 75 mg PO BID Qty: 60 2RF atorvastatin 10 mg tablet levothyroxine 75 mcg tablet albuterol sulfate [Ventolin HFA] 90 mcg/actuation HFA aerosol inhaler INHALATION risperidone 1 mg tablet Follow-up/Referrals: MARY,RAFIA CARDENAS [Primary Care Provider]
[2025-05-11] MEDS: levETIRAcetam 1500MG/NACL100ML 1,500 MG/100 ML BAG 400 MG IVPB (18:53)
[2025-05-11] MEDS: SODIUM CHLORIDE 0.9% IV 1,000 ML 999 ML IV CONT (18:53)
[2025-05-11 19:02] LABS: Hematocrit 42.7 % (42.0-52.0); Hemoglobin 14.6 g/dL (14.0-18.0); Immature Granulocyte Percent A 0.3 % (0-0.5); Lymphocytes Absolute Auto 0.92 K/mm3 (0.9-3.2); Mean Corpuscular HGB Conc 34.2 g/dl (32-36); Mean Corpuscular Hemoglobin 29.4 pg (26-34); Mean Corpuscular Volume 86.1 fl (80-100); Nucleated Red Blood Cells Absolute Auto 0.000 K/mm3 (0.0-0.012); Nucleated Red Blood Cells Perc 0.0 % (0.0-0.2); Platelet Count Result 213 k/mm3 (150-375); Red Blood Count 4.96 M/mm3 (4.6-6.20); White Blood Count 6.3 K/mm3 (4.5-10.0)
[2025-05-11 19:08] LABS: Add Urine Microscopic? NO; Appearance Urine Clear (Clear); Glucose Urine UA Negative (Negative); Leukocyte Esterase Ur Negative LEU/UL (Negative); Nitrate Urine Negative (Negative); Specific Grav Ur 1.014 (1.001-1.035)
[2025-05-11 19:14] LABS: Acetaminophen < 10 ug/mL (10-30); Alanine Aminotransferase 25 U/L (6-50); Albumin Level 4.2 g/dL (3.5-5.1); Alkaline Phosphatase 83 U/L (38-126); Anion Gap 7 mmol/L (4-12); Aspartate Amino Transferase 28 U/L (17-59); Bilirubin,Total 0.6 mg/dL (0.2-1.3); Blood Urea Nitrogen 15 mg/dL (9-20); Calcium 8.8 mg/dL (8.4-10.2); Carbon Dioxide 24 mmol/L (22-30); Chloride 106 mmol/L (98-107); Creatine Kinase 77 U/L (55-170); Estimated CRCL calculation 93 ml/min; Estimated Glomerular Filt Rate > 60; Glucose 109 mg/dL (65-110); Potassium 3.6 mmol/L (3.4-5.0); Salicylate < 1.0 mg/dL (2-20); Sodium 137 mmol/L (137-145); Total Protein 7.4 g/dL (6.3-8.2)
[2025-05-11 19:26] LABS: Troponin I < 0.012 ng/mL (0.000-0.034)
[2025-05-11 19:30] LABS: Cannabinoid Screen Urine Negative (Negative)
--- OUTSIDE RECORDS SUMMARY | 2025-05-11 20:28 | XMS_ITS | Encounter Summary ---
Author Organization [facility] Address [facility] [place] [address] Care Team Providers Care Steam Service Inspector Name Role Phone Nika Saini MARK Primary Care Provider [phone] Encounter Details Date Type Department Care Team (Late Contact Info) Description 01/03/2023 MyChart Message Enc [facility] Medical [facility] [address] [place] [address] [employer], [facility] Provider Air Quality Message Social History Tobacco Use Types Packs/Day Years Used Date Smoking Tobacco: Never Smokeless Tobacco: Current Chew 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 of 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 Alcohol Use Standard Drinks/Week Comments Not Currently 0 (1 standard drink = 0.6 oz pur e alcohol) PHQ-2 Answer Date Recorded Patient Health Questionnaire-2 Score 0 08/30/2022 Sex and Gender Information Value Date Recorded Sex Assigned at Male 07/22/2024 3:52 PM AUTOMOBILE CLUB MEMBERSHIP SALES AGENT Legal Sex Male 8:41 PM CDT Gender Identity Male 07/22/2024 3:52 PM AUTOMOBILE CLUB MEMBERSHIP SALES AGENT Sexual Orientation Not on file documented as of this encounter Plan of Treatment Upcoming Encounters Date Type Department Care Team (Late Contact Info) Description 06/10/2025 11:00 AM AUTOMOBILE CLUB MEMBERSHIP SALES AGENT Office Visit [facility] Multispecialty Care - [address], [address] [place] [phone] Glo Dejesus MD 3 [place] [address] 08/07/2025 1:40 PM AUTOMOBILE CLUB MEMBERSHIP SALES AGENT Office Visit [facility] Medical Group Family & Internal Medicine - [place] [address] [place] [address] Nika Saini FNP [facility] [place] [address] documented as of this encounter Visit Diagnoses Not on filedocumented in this encounter Additional Health Concerns Infection Onset Date Last Indicated Resolved Time COVID-19 Rule Out 05/02/2024 05/02/2024 05/02/2024 2:19 PM CDT Assessment Noted Time PHQ-9 Depression Total Score: 0 10/13/19 21 12:00 PM CDT documented as of this encounter Care Teams Steam Service Inspector Relationship Specialty Start Date End Date Nika Saini FNP [address] [place] [phone] PCP - General Nurse Practitioner Family 02/11/19 documented as of this encounter
--- OUTSIDE RECORDS SUMMARY | 2025-05-11 20:28 | XMS_ITS | Encounter Summary ---
Author Organization [facility] Address 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 Alcohol Use Standard Drinks/Week Comments Never 0 (1 standard drink = 0.6 oz pur e alcohol) PHQ-2 Answer Date Recorded Patient Health Questionnaire-2 Score 0 07/22/2024 Sex and Gender Information Value Date Recorded Sex Assigned at Male 07/22/2024 3:52 PM CHEMICAL SPRAYER Legal Sex Male 8:41 PM CDT Gender Identity Male 07/22/2024 3:52 PM CHEMICAL SPRAYER Sexual Orientation Not on file documented as of this encounter Plan of Treatment Upcoming Encounters Date Type Department Care Team (Late st Contact Info) Description 06/10/2025 11:00 AM CHEMICAL SPRAYER Office Visit [facility] Multispecialty Care - [facility] [address] [facility], [address] [place] [phone] Glo Dejesus MD 3 [place] [address] 08/07/2025 1:40 PM CHEMICAL SPRAYER Office Visit [facility] Medical Group Family & Internal Medicine - [address] [address] Nika Saini FNP [facility] [place] [address] documented as of this encounter Visit Diagnoses Not on filedocumented in this encounter Additional Health Concerns Assessment Noted Time PHQ-9 Depression Total Score: 0 10/13/19 21 12:00 PM CDT documented as of this encounter Care Teams Residential Care Facility Manager Relationship Specialty Start Date End Date Nika Saini FNP [address] [place] [phone] PCP - General Nurse Practitioner Family 02/11/19 documented as of this encounter
--- OUTSIDE RECORDS SUMMARY | 2025-05-11 20:28 | XMS_ITS | Clinical Summary ---
Author Organization [facility] Address [address] [place] [address] Care Team Providers Care Signal Person Name Role Phone Unavailable Primary Care Provider Unavailabl e Source Comments [facility],non-owned Affiliates and Associated Physician Practices is amultiple site organization consisting of ambulatory clinics and hospital sitesin [place], [place], [place] and [place]. This disclosure is being madepursuant to the Care Everywhere program and may not contain all information available regarding this patient. Last updated 18.[facility] In Flow Social History Tobacco Use Types Packs/Day Years Used Date Smoking Tobacco: Never Assessed Sex and Gender Information Value Date Recorded Sex Assigned at Not on file Legal Sex Male 6:20 AM [employer] ARCHITECT Gender Identity Not on file Sexual Orientation [...] 2014 ZOSTER VACCINE (1 of 2) 2014 DEPRESSION SCREENING 07/09/2024 COVID-19 VACCINE (2 - 2024-2 6 season) 2025 07/11/2021 INFLUENZA VACCINE (#1) 2025 COLOGUARD (AGES 45-75) [...] patient's age to complete this topic [place] [address] [place] [address]
--- OUTSIDE RECORDS SUMMARY | 2025-05-11 20:28 | XMS_ITS | Encounter Summary ---
Author Organization [facility] Address [facility] [place] [address] Care Team Providers Care Navigation Teacher Name Role Phone Nika Saini MARK Primary Care Provider [phone] Reason for Visit * Reason Onset Date Comments Question 05/08/2025 Encounter Details Date Type Department Care Team (Late st Contact Info) Description 05/08/2025 Telephone [facility] Multispecialty Care - [facility] [address] [facility], [address] [place] [phone] Glo Dejesus MD 3 [place] [address] Question Social History Tobacco Use Types Packs/Day Years Used Date Smoking Tobacco: Never Passive Smoke Exposure: Past Smokeless Tobacco: Current Chew 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:provider to student success counselor Alcohol Use Standard Drinks/Week Comments Never 0 (1 standard drink = 0.6 oz pur e alcohol) PHQ-2 Answer Date Recorded Patient Health Questionnaire-2 Score 0 01/28/2025 Sex and Gender Information Value Date Recorded Sex Assigned at Male 07/22/2024 3:52 PM SENIOR PRODUCT ENGINEER Legal Sex Male 8:41 PM CDT Gender Identity Male 07/22/2024 3:52 PM SENIOR PRODUCT ENGINEER Sexual Orientation Not on file documented as of this encounter Progress Notes * Kelly James - 05/11/2025 12:00 PM CST Pt , Cari (HIPAA AUTH) is needing the number for the Home EEG scheduling OR PRODUCT ENGINEER * Sayra Li - 05/08/2025 3:13 PM CDT Pt's wants to know who she needs to call regarding the home EEG test documented in this encounter Plan of Treatment Upcoming Encounters Date Type Department Care Team (Late st Contact Info) Description 06/10/2025 11:00 AM SENIOR PRODUCT ENGINEER Office Visit [facility] Multispecialty Care - [facility] [address] [facility], [address] [place] [address] Glo Dejesus MD 3 [place] [address] 08/07/2025 1:40 PM SENIOR PRODUCT ENGINEER Office Visit [facility] Family & Internal Medicine - [address] [address] Nika Saini FNP [address] [place] [address] documented as of this encounter Visit Diagnoses Not on filedocumented in this encounter Additional Health Concerns Assessment Noted Time PHQ-9 Depression Total Score: 0 10/13/19 21 12:00 PM CDT documented as of this encounter Care Teams Navigation Teacher Relationship Specialty Start Date End Date Nika Saini FNP [address] [place] [phone] PCP - General Nurse Practitioner Family 02/11/19 documented as of this encounter
--- OUTSIDE RECORDS SUMMARY | 2025-05-11 20:28 | XMS_ITS | Clinical Summary ---
Author Organization [facility] Address [address] [place] [address] Care Team Providers Care Revenue Accounting Manager Name Role Phone Nika Saini MARK Primary Care Provider [phone] Allergies Active Allergy Reactions Criticality Noted Date Comments Codeine Swelling High 02/11/2019 Iodine Unknown High 02/26/2014 Ketorolac Unknown Medium 02/26/2014 Lacosamide Chest pressure High 01/29/2025 Penicillins Unknown High 02/26/2014 Steroids Other (see comment) Medium 01/19/2020 aggitation Medications risperiDONE 1 MG tablet Take 1 tablet (1 mg total) by mouth daily. 2 9 Active ALPRAZolam 0.5 MG tablet Take 1 tablet (0.5 mg total) by mouth 3 (three) times daily as needed. 0 Active risperiDONE (RISPERDAL) 3 MG tablet Take 1 tablet (3 mg total) by mouth daily. 3 Active Magnesium 400 MG TabIndications:Hyp omagnesemia Take 400 mg by mouth nightly. 90 tablet 3 5 Active levothyroxine (SYNTHROID) 75 MCG tabletIndications: Acquired hypothyroidism Take 1 tablet (75 mcg total) by mouth every morning. 90 tablet 3 5 Active atorvastatin (LIPITOR) 20 MG tabletIndications: Mixed hyperlipidemia Take 1 tablet (20 mg total) by mouth nightly at bedtime. 90 tablet 3 5 Active empagliflozin (JARDIANCE) 10 MG tabletIndications: Prediabetes Take 1 tablet (10 mg total) by mouth daily. 90 tablet 3 5 Active levETIRAcetam (KEPPRA) 1000 MG tabletIndications: Seizure disorder (CMS/HCC HHS/HCC) Take 2 tablets (2,000 mg total) by mouth 2 (two) times daily. 360 tablet 3 5 01/29/20 26 Active oxyCODONE-acetamin ophen (PERCOCET) 5-325 MG tablet Take 1 tablet by mouth every 12 (twelve) hours as needed. 5 Active albuterol sulfate HFA (VENTOLIN HFA) 108 (90 Base) MCG/ACT inhalerIndications :Mild intermittent asthma without complication (HHS/HCC) INHALE ONE TO TWO PUFFS EVERY 4 TO 6 HOURS 18 g 11 5 Active divalproex ER (DEPAKOTE ER) 500 MG 24 hr tabletIndications: Seizure disorder (CMS/HCC HHS/HCC) Take 1 tablet (500 mg total) by mouth 2 (two) times a day. 180 tablet 3 5 05/08/20 26 Active divalproex ER (DEPAKOTE ER) 250 MG 24 hr tabletIndications: Seizure disorder (CMS/HCC HHS/HCC) Take 1 tablet (250 mg total) by mouth 2 (two) times a day. 180 tablet 3 5 05/08/20 25 Discontin ued(Reord er) Active Problems Problem Noted Date Diagnosed Date [...] type 02/11/2019 Mild intermittent asthma without complication Encounter for monitoring Dilantin therapy 2018 Hypothyroidism 08/28/2017 Essential (primary) hypertension 08/08/2016 Hypogonadism 11/08/2015 Low testosterone 09/13/2015 Erectile dysfunction 09/06/2015 Seizure disorder 02/26/2014 Bipolar disorder 02/26/2014 Resolved Problems Problem Noted Date Diagnosed [...] 12/11/2017 09/07/2020 Shoulder pain, left 09/21/2017 09/08/19 21 Trauma, blunt 08/15/2017 09/07/2020 Vomiting and diarrhea 08/18/20162020 Chest wall pain 07/13/2016 09/07/2020 Left upper lobe pneumonia 05/15/2016 Dizziness 09/06/2015 09/07/2020 Blurred vision, right eye 05/06/2014 Anserine bursitis 02/26/2014 09/07/2020 Right hip pain 02/26/2014 09/07/2020 Encounters Date Type Department Care Team Description 05/08/2025 2:20 PM CDT Office Visit [address], [address] [place] [phone] Glo Dejesus MD Follow Up; Seizures 05/08/[address], [address] [place] [phone] Glo Dejesus MD Question 05/08/2025 Travel 03/30/[address], [address] [place] [address] Glo Dejesus MD Question 03/24/[address] [place] [address] Glo Dejesus MD Concerns 03/04/2025 1:40 PM CDT Office Visit [address], [address] [place] [address] Glo Dejesus MD Follow Up; Seizures (Pt states that he has had six seizures in the last 1.5 months. ) 03/04/2025 Travel 02/24/2025 Misc Documentation [address], [address] [place] [address] Glo Dejesus MD 02/10/[address] [place] [phone] Glo Dejesus MD Question 02/10/2025 Telephone [facility] [address], [address] [place] [phone] Glo Dejesus MD Question; Medication; Concerns from Last 3 Months Immunizations Immunization Administration [...] Smoke Exposure: Past Smokeless Tobacco: Current Chew Tobacco Cessation:Ready to Q uit: Not Asked; Counseling Given: Not Answered Comments:provider to clinical counselor Alcohol Use Standard Drinks/Week Comments Never 0 (1 standard drink = 0.6 oz pur e alcohol) PHQ-2 Answer Date Recorded Patient Health Questionnaire-2 Score 0 01/28/2025 Sex and Gender Information Value Date Recorded Sex Assigned at Male 07/22/2024 3:52 PM PST SUPERVISOR Legal Sex Male 8:41 PM CDT Gender Identity Male 07/22/2024 3:52 PM PST SUPERVISOR Sexual Orientation Not on file Last Filed Vital Signs Vital Sign Reading Time Taken Comments Blood Pressure 116/80 05/08/2025 1:17 PM CDT Pulse 74 05/08/2025 1:17 PM CDT Temperature 36.9 C (98.4 F) 05/08/2025 1:17 PM CDT Respiratory Rate 12 03/04/2025 1:35 PM CDT Oxygen Saturation 98% 05/08/2025 1:17 PM CDT Inhaled Oxygen Concentration - - Weight 95.7 kg (211 lb) 05/08/2025 1:17 PM CDT Height 177.8 cm (5' 10) 05/08/2025 1:17 PM CDT Body Mass Index 30.28 05/08/2025 1:17 PM CDT Plan of Treatment Upcoming Encounters Date Type Department Care Team (Late st Contact Info) Description 06/10/2025 11:00 AM PST SUPERVISOR Office Visit [facility] - [facility] [address], [address] [place] [phone] Glo Dejesus MD [address] [place] [address] 08/07/2025 1:40 PM PST SUPERVISOR Office Visit [facility] [id number] [place] [address] Nika Saini, MARK [address] [place] [id number] Health Maintenance Due Date Last Done Comments Annual Physical 10[birth year]05/1968 Hepatitis C 1982 ASCVD LDL 11/18/2024 11/19/2023, 03/10, 12/29/2021, Additional history exists COVID-19 Vaccine ( season) 2025 07/11/2021, 11/21/2020, 11/01/2020 Influenza Adult (#1) 2025 Pneumococcal Vaccine: 50+ Years (1 of 2 - PCV) 01/29/2026 Postponed from 10/05/1983 (Patient Refused) RSV Immunization or 60+ Years (1 - Risk 60-74 years 1-dose series) 01/29/2026 Postponed fro m 2024 (Patient Refused) Zoster Vaccines (1 of 2) 01/29/2026 Pos tponed from 2014 (Patient Refused) Colorectal Cancer Screening FIT-DNA (3 Years) 11/21/2026 11/22/2023, 11/22/2023 DTaP, Tdap and Td Vaccines (2 - Td or Tdap) 01/18/2029 01/18/2019 PHQ-2 (Physician [place]) Completed 01/28/2025 Hepatitis A Vaccines Aged Out No long er eligible based on patient's age to complete this topic Meningococcal B Vaccine Aged Out No l [...] 11:57 AM CDT) COLOGUARD RESULT Negative Negative [employer] (CLIA #:[id number]) Comment: NEGATIVE TEST RESULT. A negative Cologuard [...] (Usman Keith al, N Engl J Med 2014;370(14):0362-0667) The normal value (reference range) for this assay is negative. COLOGUARD RE-SCREENING RECOMMENDATION: Periodic colorectal cancer screening is an important part of preventive healthcare for asymptomatic individuals at average risk for colorectal cancer. Following a negative Cologuard result, the [place] Cancer Society and U.S. Multi-Society Task Force screening guidelines recommend a Cologuard re-screening interval of 3 years. References: [place] [employer] Society Guideline for Colorectal Cancer Screening: https://www.cancer.org/cancer/jgkta-asrude-pexylm/jxfwutbfl-ipfxxndfj-ybellqs/ac s-rec ommendations.html.; Lloyd ALARCON, Oscar JAMES, Li GouldK, Colorectal Cancer Screening: Recommendations for Physicians and Patients from the U.S. Multi-Society Task Force on Colorectal Cancer Screening , Am J Gastroenterology 2017; 112:0233-2548. TEST DESCRIPTION: Composite algorithmic analysis of stool [...] Trejo et al, N Engl J Med 2014;370(14):5584-3250.) Cologuard may produce a false negative or false positive result (no colorectal cancer or precancerous polyp present at colonoscopy follow up). A negative Cologuard test result does not guarantee the absence of CRC or advanced adenoma (pre-cancer). The current Cologuard screening interval is every 3 years. ([place] Cancer Society and U.S. Multi-Society Task Force). Cologuard performance data in a 10,000 patient pivotal study using colonoscopy as the reference method can be accessed at the following location: www.[employer].ePACT Network/results. Additional description of the Cologuard test process, warnings and precautions can be found at www.cologuard.ePACT Network. STOOL STOOL SPECIMEN / Unknown 11/22/2023 11:57 AM CDT 11/23/2023 9:57 AM CDT Nika Saini MARKET RISK MANAGER BODY FLUIDS AND STOOLS ORDERAB LES Final Result [facility]) [address] [place] [address], [facility] (CLIA #:[id number]) [address] [place] [address] * (ABNORMAL) LIPID PANEL (11/19/2023 11:06 AM CDT) CHOLESTEROL 171 <200 mg/dL [place] [place] HDL 36(L) > OR = 40 mg/dL [place] TRIGLYCERIDES 193(H) <150 mg/dL [place] [place] LDL (CALCULATED) 104(H) mg/dL (calc) [place] [place] Comment: Reference range: <100 Desirable range <100 mg/dL for primary prevention; <70 mg/dL for patients with CHD or diabetic patients with > or = 2 CHD risk factors. LDL-C is now calculated using the Yg-Kwadwo calculation, which is a validated novel method providing better accuracy than the Friedewald equation in the estimation of LDL-C. Yg HAY et al. PARI. 2013;310(19): 0611-2392 (http://education.[employer].ePACT Network/faq/IPX109) CHOL/HDL RATIO 4.8 <5.0 (calc) [place] [place] NON HDL CHOLESTEROL 135(H) <130 mg/dL (calc) [place] [place] Comment: For patients with diabetes plus 1 major ASCVD risk factor, treating to a non-HDL-C goal of <100 mg/dL (LDL-C of <70 mg/dL) is considered a therapeutic option. 11/19/2023 11:0 6 AM CDT 11/19/2023 11:10 AM CDT Narrative [facility] - 11/20/2023 6:47 AM CDT FASTING:YES PATIENT UNABLE TO VOID; ADVISED TO RETURN FOR COLLECTION. FASTING: YES Resulting Agency Comment Performing Organization Information: Site ID: [id number] Address: [address] [place] [address] Director: Agapito Jean Baptiste Nika [facility] Final Result [facility] [place] [address] [place] [phone], from Last 3 Months or Most Recently Relevant to Health Maintenance Insurance [address] [place] [address] MEDICAID Care Teams Revenue Accounting Manager Relationship Specialty Start Date End Date Nika Saini FNP [address] [place] [phone] PCP - General Nurse Practitioner Family 02/11/19
[2025-05-11 20:55] VITALS: BP 133/76
== END 2025-05-11 20:57 | disposition home or self-care (01) ==
LOC: ANHED 20:26
PROVIDERS: Emergency Provider Student in an Organized Health Care Education/Training Program; PCP Nurse Practitioner Family
DX: G40.909 Epilepsy, unspecified, not intractable, without status epilepticus (principal); F31.9 Bipolar disorder, unspecified; J45.909 Unspecified asthma, uncomplicated
CPT/HCPCS: 36415; 70450; 71045; 80053; 80143; 80179; 80307; 81003; 82077; 82550; 83605; 84484; 85025; 93005; 96361; 96365; 99284; J1953; J3360; J7030